=== PATIENT | male | born 1995 | race Caucasian/White ===

== ENCOUNTER 2016-10-28 21:59 | Emergency (ER) | payer BC ==
[~2016-10-28] VITALS: Ht 177.8 cm; Wt 90.7 kg
[2016-10-28 22:00] VITALS: BP 148/98
[2016-10-28 22:05] VITALS: BP 149/113
[2016-10-28 22:51] LABS: MEAN CORPUSCULAR HEMOGLOBIN 32.7 PG (27.0-31.0); MEAN CORPUSCULAR HGB CONC 34.7 G/DL (32.0-36.0); MEAN CORPUSCULAR VOLUME 94 FL (80-99); MEAN PLATELET VOLUME 7.5 FL (6.5-10.1); PLATELET COUNT 231 K/UL (150-450); RED CELL DISTRIBUTION WIDTH 12.6 % (11.6-14.8); WHITE BLOOD COUNT 18.7 K/UL (4.8-10.8)
[2016-10-28 23:08] LABS: ACETAMINOPHEN < 10 ug/mL (10-30); ALANINE AMINOTRANSFERASE 76 U/L (3-41); ALBUMIN/GLOBULIN RATIO 1.6 (1.0-2.7); ALCOHOL < 10 mg/dL; ANION GAP 14 (5-15); ASPARTATE AMINO TRANSFERASE 43 U/L (5-40); CALCIUM 9.1 mg/dL (8.6-10.2); CARBON DIOXIDE 25 mEQ/L (20-30); CHLORIDE 99 mEQ/L (98-107); CREATININE 1.2 mg/dL (0.7-1.2); GLOMERULAR FILTRATION RATE > 60 mL/min (>60); HEMOLYSIS 11; POTASSIUM 3.8 mEQ/L (3.4-4.9); SODIUM 138 mEQ/L (135-145); TOTAL PROTEIN 7.3 g/dL (6.6-8.7)
[2016-10-28 23:10] LABS: LYMPHOCYTES % (MANUAL) 7 % (20-45); NEUTROPHILS % (MANUAL) 89 % (45-75); PLATELET MORPHOLOGY NORMAL; TOTAL CELLS COUNTED 100
[2016-10-28 23:11] LABS: BAND NEUTROPHILS % (MANUAL) 0 % (0-8); BASOPHILS % (MANUAL) 0 % (0-2); EOSINOPHILS % (MANUAL) 0 % (0-3); PLATELET ESTIMATE ADEQUATE
--- NOTE | 2016-10-29 00:29 | Emergency Room Report ---
History of Present Illness General Chief Complaint: Overdose Source: Patient Present Illness HPI Patient present by paramedics for reports of an intentional overdose Patient's mom also presents to the found the patient She had come into the room to find the patient unresponsive Paramedics summoned and the patient was provided with Narcan Which resulted in acute change in his mental status And the patient became awake and alert Patient takes multiple medications for chronic pain syndrome He reports that he might have taken an extra pill However he denies any homicidal or suicidal thoughts, and reports that this was simply for medical reasons Denies any alcohol or other illicit drugs Allergies: Coded Allergies: No Known Allergies (Unverified , 10/28/16) Patient History Past Medical History: see triage record Pertinent Family History: none Reviewed Nursing Documentation: PMH: Agreed, PSxH: Agreed Nursing Documentation-PMH Past Medical History: No Stated History Review of Systems All Other Systems: negative except mentioned in HPI Physical Exam Vital Signs Date Time Temp Pulse Resp B/P (MAP) Pulse Ox O2 Delivery O2 Flow Rate FiO2 10/28/16 21:54 62 20 148/98 100 Room Air Sp02 EP Interpretation: reviewed, normal General Appearance: well appearing, no apparent distress Head: normocephalic, atraumatic Eyes: bilateral eye PERRL, bilateral eye EOMI ENT: hearing grossly normal, normal pharynx, TMs + canals normal, uvula midline Neck: full range of motion, supple, no meningismus, no bony tend Respiratory: lungs clear, normal breath sounds, no rhonchi, no respiratory distress, no retraction, no accessory muscle use Cardiovascular #1: normal peripheral pulses, regular rate, rhythm, no edema, no gallop, no JVD, no murmur Gastrointestinal: normal bowel sounds, non tender, soft, no mass, no organomegaly, non-distended, no guarding, no hernia, no pulsatile mass, no rebound Genitourinary: no CVA tenderness Musculoskeletal: normal inspection, back normal Neurologic: oriented x3, responsive, coffee taster III-XII nml as tested, motor strength/ tone normal, sensory intact Psychiatric: mood/affect normal Skin: normal color, no rash, warm/dry, palpation normal Lymphatic: normal inspection, no adenopathy Medical Decision Making Diagnostic Impression: Primary Impression: Drug overdose ER Course Patient presents with an unintentional drug overdose Responded appropriately to Narcan in the field Patient was observed for prolonged period of time continued to do well arousable and awake Patient was found to have multiple drug types positive in the urine Given the question of possible [place] ingestion repeat Tylenol level was obtained which was negative And the patient stable for followup outpatient He is going home with his mom and she also feels comfortable at this time going home the patient He continues not to be any reports of any homicidal or suicidal thought, the mom also confirms this with the patient Labs Test 10/28/16 22:30 10/29/16 00:17 10/29/16 02:00 White Blood Count 18.7 K/UL (4.8-10.8) Red Blood Count 4.40 M/UL (4.70-6.10) Hemoglobin 14.4 G/DL (14.2-18.0) Hematocrit 41.4 % (42.0-52.0) Mean Corpuscular Volume 94 FL (80-99) Mean Corpuscular Hemoglobin 32.7 PG (27.0-31.0) Mean Corpuscular Hemoglobin Concent 34.7 G/DL (32.0-36.0) Red Cell Distribution Width 12.6 % (11.6-14.8) Platelet Count 231 K/UL (150-450) Mean Platelet Volume 7.5 FL (6.5-10.1) Neutrophils (%) (Auto) % (45.0-75.0) Lymphocytes (%) (Auto) % (20.0-45.0) Monocytes (%) (Auto) % (1.0-10.0) Eosinophils (%) (Auto) % (0.0-3.0) Basophils (%) (Auto) % (0.0-2.0) Differential Total Cells Counted 100 Neutrophils % (Manual) 89 % (45-75) Lymphocytes % (Manual) 7 % (20-45) Monocytes % (Manual) 4 % (1-10) Eosinophils % (Manual) 0 % (0-3) Basophils % (Manual) 0 % (0-2) Band Neutrophils 0 % (0-8) Platelet Estimate Adequate Platelet Morphology Normal Red Blood Cell Morphology Normal Sodium Level 138 mEQ/L (135-145) Potassium Level 3.8 mEQ/L (3.4-4.9) Chloride Level 99 mEQ/L (98-107) Carbon Dioxide Level 25 mEQ/L (20-30) Anion Gap 14 (5-15) Blood Urea Nitrogen 9 mg/dL (7-23) Creatinine 1.2 mg/dL (0.7-1.2) Estimat Glomerular Filtration Rate > 60 mL/min (>60) Glucose Level 220 mg/dL (74-106) Calcium Level 9.1 mg/dL (8.6-10.2) Total Bilirubin 0.3 mg/dL (0.0-1.2) Aspartate Amino Transf (AST/SGOT) 43 U/L (5-40) Alanine Aminotransferase (ALT/SGPT) 76 U/L (3-41) Alkaline Phosphatase 58 U/L (40-129) Total Protein 7.3 g/dL (6.6-8.7) Albumin 4.5 g/dL (3.5-5.2) Globulin 2.8 g/dL Albumin/Globulin Ratio 1.6 (1.0-2.7) Salicylates Level < 1 mg/dL (10-30) Acetaminophen Level < 10 ug/mL (10-30) < 10 ug/mL (10-30) Serum Alcohol < 10 mg/dL Urine Opiates Screen Positive (NEGATIVE) Urine Barbiturates Screen Negative (NEGATIVE) Phencyclidine (PCP) Screen Negative (NEGATIVE) Urine Amphetamines Screen Positive (NEGATIVE) Urine Benzodiazepines Screen Positive (NEGATIVE) Urine Cocaine Screen Negative (NEGATIVE) Urine Marijuana (THC) Screen Positive (NEGATIVE) Rhythm Strip Diag. Results EP Interpretation: yes Rate: 66 Rhythm: NSR, no PVC's, no ectopy Last Vital Signs Date Time Temp Pulse Resp B/P (MAP) Pulse Ox O2 Delivery O2 Flow Rate FiO2 10/28/16 23:28 114 20 Room Air 10/28/16 22:05 149/113 96 Status: improved Disposition: HOME, SELF-CARE Condition: Improved Additional Instructions: Patient is provided with the discharge instructions notified to follow up with primary doctor in the next 2-3 days otherwise return to the er with any worsening symptoms. Please note that this report is being documented using [employer] technology. This can lead to erroneous entry secondary to incorrect interpretation by the dictating instrument. BLACK SAAB D.O. Oct 29, 2016 00:29
[2016-10-29 01:30] VITALS: BP 115/65
[2016-10-29 03:35] VITALS: BP 102/53
[2016-10-29 03:58] VITALS: BP 102/53
== END 2016-10-29 06:10 | disposition home or self-care (01) ==
LOC: EDBD 21:59 → EMR 22:30
DX: T50.901A Poisoning by unspecified drugs, medicaments and biological substances, accidental (unintentional), initial encounter (principal)
CPT/HCPCS: 36415; 80053; 80300; 85007; 85025; 96361; 96374; 99284; G0480; J2405; 80329

== ENCOUNTER 2016-12-29 12:10 | Inpatient (IN) | payer BC ==
[~2016-12-29] VITALS: Ht 172.7 cm; Wt 101.6 kg
[2016-12-29 12:20] VITALS: BP 111/67
[2016-12-29] MEDS ORDERED: VALTREX500 MG ORAL (12:20)
[2016-12-29] MEDS ORDERED: SUBOXONE 4 MG-1 EACH SL (12:20)
[2016-12-29] MEDS ORDERED: GABAPENTIN400 MG ORAL (12:20)
[2016-12-29] MEDS ORDERED: ATIVAN1 MG ORAL (12:21)
[2016-12-29 12:52] LABS: BASOPHILS % (AUTO) 0.9 % (0.0-2.0); EOSINOPHILS % (AUTO) 1.2 % (0.0-3.0); LYMPHOCYTES % (AUTO) 23.9 % (20.0-45.0); MEAN CORPUSCULAR HEMOGLOBIN 31.4 PG (27.0-31.0); MEAN CORPUSCULAR HGB CONC 33.4 G/DL (32.0-36.0); MEAN CORPUSCULAR VOLUME 94 FL (80-99); MEAN PLATELET VOLUME 7.6 FL (6.5-10.1); NEUTROPHILS % (AUTO) 68.1 % (45.0-75.0); PLATELET COUNT 312 K/UL (150-450); RED BLOOD COUNT 5.01 M/UL (4.70-6.10); RED CELL DISTRIBUTION WIDTH 11.8 % (11.6-14.8); WHITE BLOOD COUNT 8.9 K/UL (4.8-10.8)
[2016-12-29 13:12] LABS: INR 1.1 (0.9-1.1); PROTHROMBIN TIME 11.3 SEC (9.30-11.50)
[2016-12-29 13:16] LABS: ALANINE AMINOTRANSFERASE 35 U/L (12-78); ALBUMIN/GLOBULIN RATIO 1.1 (1.0-2.7); ANION GAP 4 mmol/L (5-15); ASPARTATE AMINO TRANSFERASE 21 U/L (15-37); CALCIUM 9.6 MG/DL (8.5-10.1); CARBON DIOXIDE 33 MMOL/L (21-32); CHLORIDE 103 MMOL/L (98-107); GLOMERULAR FILTRATION RATE > 60 mL/min (>60); LIPASE 232 U/L (73-393); POTASSIUM 3.9 MMOL/L (3.5-5.1); SODIUM 140 MMOL/L (136-145)
[2016-12-29 13:41] LABS: APPEARANCE,URINE CLEAR; KETONES,URINE NEGATIVE (NEGATIVE); LEUKOCYTE ESTERASE ,URINE NEGATIVE (NEGATIVE); NITRITE,URINE NEGATIVE (NEGATIVE); PH,URINE 8 (4.5-8.0); PROTEIN,URINE NEGATIVE (NEGATIVE); UROBILINOGEN,URINE NORMAL MG/DL (0.0-1.0)
--- NOTE | 2016-12-29 13:46 | Emergency Room Report ---
History of Present Illness General Chief Complaint: General Complaint Source: Patient (ANGELY HEARD) Present Illness HPI The patient is a 21-year-old male presenting for hydradenitis suppurativa. He states that he has had this for the past 5 years and has been treated with multiple courses of antibiotics without any improvement. This is localized to the groin. He does admit to a 5/10 dull ache to this region and is worse with touch. Pain does not radiate. He denies fevers, chills, discharge from the wounds, shortness of breath, chest pain, abdominal pain, dysuria (ANGELY HEARD) Allergies: Coded Allergies: No Known Allergies (Unverified , 10/28/16) Patient History Past Medical History: see triage record Pertinent Family History: none Reviewed Nursing Documentation: PMH: Agreed, PSxH: Agreed (ANGELY HEARD) Review of Systems All Other Systems: negative except mentioned in HPI (ANGELY HEARD) Physical Exam Vital Signs Date Time Temp Pulse Resp B/P (MAP) Pulse Ox O2 Delivery O2 Flow Rate FiO2 12/29/16 12:13 98.1 66 18 111/67 98 Room Air Sp02 EP Interpretation: reviewed, normal General Appearance: no apparent distress, alert, GCS 15, non-toxic Head: normocephalic, atraumatic Eyes: bilateral eye normal inspection, bilateral eye PERRL ENT: hearing grossly normal, normal pharynx, no angioedema, normal voice Neck: full range of motion, supple/symm/no masses Respiratory: chest non-tender, lungs clear, normal breath sounds, speaking full sentences Cardiovascular #1: regular rate, rhythm, no edema Gastrointestinal: normal bowel sounds, non tender, soft, non-distended, no guarding, no rebound Genitourinary: normal inspection, no CVA tenderness Musculoskeletal: back normal, gait/station normal, normal range of motion, non- tender Neurologic: alert, oriented x3, responsive, motor strength/tone normal, sensory intact, speech normal Psychiatric: judgement/insight normal, memory normal, mood/affect normal, no suicidal/homicidal ideation Skin: rash - bilat inguinal region has multiple nodules with slight erythema and TTP. Lymphatic: no adenopathy (ANGELY HEARD) Medical Decision Making [place] Attestation Dr. Hogue is my supervising physician. Patient management was discussed with my supervising physician (ANGELY HEARD) Medicare Attestation The history of Williams Enriquez has been reviewed and management options for him have been examined and discussed by Debby Hogue. I have personally examined and interviewed the patient. (DEBBY HOGUE D.O.) Diagnostic Impression: Primary Impression: Hidradenitis suppurativa ER Course The patient is a 21-year-old male presenting for hydradenitis suppurativa. Differential diagnoses considered but not limited to: hydradenitis suppurativa, abscess, cellulitis, PE: Afebrile. NAD RRR Lungs CTA bilat Skin: bilat inguinal region has multiple nodules with slight erythema and TTP. No DC. Blood work is unremarkable. No leukocytosis The patient will be admitted to this hospital and stable condition. Dr. Hogue has spoken with admitting physician Laboratory Tests Test 12/29/16 12:41 12/29/16 13:26 White Blood Count 8.9 K/UL (4.8-10.8) Red Blood Count 5.01 M/UL (4.70-6.10) Hemoglobin 15.7 G/DL (14.2-18.0) Hematocrit 47.0 % (42.0-52.0) Mean Corpuscular Volume 94 FL (80-99) Mean Corpuscular Hemoglobin 31.4 PG (27.0-31.0) H Mean Corpuscular Hemoglobin Concent 33.4 G/DL (32.0-36.0) Red Cell Distribution Width 11.8 % (11.6-14.8) Platelet Count 312 K/UL (150-450) Mean Platelet Volume 7.6 FL (6.5-10.1) Neutrophils (%) (Auto) 68.1 % (45.0-75.0) Lymphocytes (%) (Auto) 23.9 % (20.0-45.0) Monocytes (%) (Auto) 6.0 % (1.0-10.0) Eosinophils (%) (Auto) 1.2 % (0.0-3.0) Basophils (%) (Auto) 0.9 % (0.0-2.0) Prothrombin Time 11.3 SEC (9.30-11.50) Prothrombin Time INR 1.1 (0.9-1.1) PTT 31 SEC (23-33) Sodium Level 140 MMOL/L (136-145) Potassium Level 3.9 MMOL/L (3.5-5.1) Chloride Level 103 MMOL/L (98-107) Carbon Dioxide Level 33 MMOL/L (21-32) H Anion Gap 4 mmol/L (5-15) L Blood Urea Nitrogen 11 mg/dL (7-18) Creatinine 1.0 MG/DL (0.55-1.30) Estimate Glomerular Filtration Rate > 60 mL/min (>60) Glucose Level 79 MG/DL (74-106) Calcium Level 9.6 MG/DL (8.5-10.1) Total Bilirubin 0.4 MG/DL (0.2-1.0) Aspartate Amino Transferase (AST) 21 U/L (15-37) Alanine Aminotransferase (ALT) 35 U/L (12-78) Alkaline Phosphatase 62 U/L (46-116) Total Protein 8.0 G/DL (6.4-8.2) Albumin 4.1 G/DL (3.4-5.0) Globulin 3.9 g/dL Albumin/Globulin Ratio 1.1 (1.0-2.7) Lipase 232 U/L (73-393) Urine Color Pale yellow Urine Appearance Clear Urine pH 8 (4.5-8.0) Urine Specific [place] 1.010 (1.005-1.035) Urine Protein Negative (NEGATIVE) Urine Glucose (UA) Negative (NEGATIVE) Urine Ketones Negative (NEGATIVE) Urine Occult Blood Negative (NEGATIVE) Urine Nitrite Negative (NEGATIVE) Urine Bilirubin Negative (NEGATIVE) Urine Urobilinogen Normal MG/DL (0.0-1.0) Urine Leukocyte Esterase Negative (NEGATIVE) Lab Results Impression Blood work is unremarkable. No leukocytosis (ANGELY HEARD) Last Vital Signs Date Time Temp Pulse Resp B/P (MAP) Pulse Ox O2 Delivery O2 Flow Rate FiO2 12/29/16 12:20 98.1 68 18 111/67 99 Room Air Status: improved (ANGELY HEARD) Disposition: ADMITTED INPATIENT Condition: Stable Referrals: NON PHYSICIAN (PCP) ANGELY HEARD Dec 29, 2016 13:46 DEBBY HOGUE D.O. Dec 29, 2016 14:50
[2016-12-29] MEDS ORDERED: LORazepam 1mg tab ORAL ONE (15:00)
[2016-12-29 16:00] VITALS: BP 109/55
[2016-12-29] MEDS ORDERED: Mylanta II UD 30ml ORAL PRN (16:30)
[2016-12-29] MEDS ORDERED: Norco 10mg/325mg tab ORAL PRN (16:30)
[2016-12-29] MEDS ORDERED: Miralax 17gm pkt ORAL PRN (16:30)
[2016-12-29] MEDS ORDERED: Zolpidem 5mg tab ORAL PRN (16:30)
[2016-12-29] MEDS ORDERED: Norco 5mg/325mg tab ORAL PRN (16:30)
--- NOTE | 2016-12-29 18:48 | History and Physical ---
History of Present Illness General Date patient seen: Dec 29, 2016 Time patient seen: 18:48 Reason for Hospitalization: pain/swelling/redness of b/l groin lesions Present Illness HPI 21y/o male with pmh of hidradenitis suppurativa, tobacco abuse, alcohol abuse, drug abuse, chronic pain and addiction who presents with increased pain/swelling /redness from b/l groin lesions. Pt states that he has had this for the past 5 years and has been treated with multiple courses of antibiotics without any improvement. This is localized to the groin described as a 5/10 dull ache to this region and is worse with touch. Pain does not radiate. Notes swelling and redness b/l. He denies fevers, chills, discharge from the wounds, shortness of breath, chest pain, abdominal pain, dysuria. Pt states able to ambulate several blocks and at least a flight of stairs w/o chest pain or SOB. H/o alcohol abuse , now in remission. H/o chronic pain and opioid dependence, now on suboxone. Smokes marijuana daily. Also smokes 1ppd cig x 5 years. Allergies: Coded Allergies: No Known Allergies (Unverified , 10/28/16) Medication History Scheduled Gabapentin* (Gabapentin*), 1,600 MG ORAL QID, (Reported) Lorazepam* (Ativan*), 1 MG ORAL BID, (Reported) Valacyclovir Hcl* (Valtrex*), 500 MG ORAL THREE TIMES A DAY, (Reported) Miscellaneous Medications Buprenorphine Hcl/Naloxone Hcl (Suboxone 4 Mg-1 Mg Sl Film), 1 EACH SL, ( Reported) Patient History History Provided By: Patient, PMD Healthcare decision maker Resuscitation status Full Code Advanced Directive on File No Family History Family History: Patient reports no known family medical history. Social History Social History: (1) Chronic pain (2) Opioid dependence (3) Tobacco abuse (4) H/O alcohol abuse (5) Hidradenitis suppurativa Review of Systems ROS Narrative CONSTITUTIONAL: No weight loss, fever, chills, weakness or fatigue. HEENT: Eyes: No visual loss, blurred vision, double vision or yellow sclerae. Ears, Nose, Throat: No hearing loss, sneezing, congestion, runny nose or sore throat. SKIN: No rash or itching. CARDIOVASCULAR: No chest pain, chest pressure or chest discomfort. No palpitations or edema. RESPIRATORY: No shortness of breath, cough or sputum. GASTROINTESTINAL: No anorexia, nausea, vomiting or diarrhea. No abdominal pain or blood. NEUROLOGICAL: No headache, dizziness, syncope, paralysis, ataxia, numbness or tingling in the extremities. No change in bowel or bladder control. MUSCULOSKELETAL: No muscle, back pain, joint pain or stiffness. HEMATOLOGIC: No anemia, bleeding or bruising. LYMPHATICS: No enlarged nodes. No history of splenectomy. PSYCHIATRIC: No history of depression or anxiety. ENDOCRINOLOGIC: No reports of sweating, cold or heat intolerance. No polyuria or polydipsia. ALLERGIES: No history of asthma, hives, eczema or rhinitis. Physical Exam Last 24 Hour Vital Signs Date Time Temp Pulse Resp B/P (MAP) Pulse Ox O2 Delivery O2 Flow Rate FiO2 12/29/16 16:00 98.5 51 18 109/55 99 Room Air 12/29/16 13:40 98.1 68 18 111/67 99 Room Air 12/29/16 12:20 98.1 68 18 111/67 99 Room Air 12/29/16 12:13 98.1 66 18 111/67 98 Room Air Intake and Output 12/29/16 12/30/16 19:00 07:00 Intake Total 410 ml Balance 410 ml Intake Oral 410 ml Laboratory Tests Test 12/29/16 12:41 12/29/16 13:26 White Blood Count 8.9 K/UL (4.8-10.8) Red Blood Count 5.01 M/UL (4.70-6.10) Hemoglobin 15.7 G/DL (14.2-18.0) Hematocrit 47.0 % (42.0-52.0) Mean Corpuscular Volume 94 FL (80-99) Mean Corpuscular Hemoglobin 31.4 PG (27.0-31.0) H Mean Corpuscular Hemoglobin Concent 33.4 G/DL (32.0-36.0) Red Cell Distribution Width 11.8 % (11.6-14.8) Platelet Count 312 K/UL (150-450) Mean Platelet Volume 7.6 FL (6.5-10.1) Neutrophils (%) (Auto) 68.1 % (45.0-75.0) Lymphocytes (%) (Auto) 23.9 % (20.0-45.0) Monocytes (%) (Auto) 6.0 % (1.0-10.0) Eosinophils (%) (Auto) 1.2 % (0.0-3.0) Basophils (%) (Auto) 0.9 % (0.0-2.0) Prothrombin Time 11.3 SEC (9.30-11.50) Prothromb Time International Ratio 1.1 (0.9-1.1) Activated Partial Thromboplast Time 31 SEC (23-33) Sodium Level 140 MMOL/L (136-145) Potassium Level 3.9 MMOL/L (3.5-5.1) Chloride Level 103 MMOL/L (98-107) Carbon Dioxide Level 33 MMOL/L (21-32) H Anion Gap 4 mmol/L (5-15) L Blood Urea Nitrogen 11 mg/dL (7-18) Creatinine 1.0 MG/DL (0.55-1.30) Estimat Glomerular Filtration Rate > 60 mL/min (>60) Glucose Level 79 MG/DL (74-106) Calcium Level 9.6 MG/DL (8.5-10.1) Total Bilirubin 0.4 MG/DL (0.2-1.0) Aspartate Amino Transf (AST/SGOT) 21 U/L (15-37) Alanine Aminotransferase (ALT/SGPT) 35 U/L (12-78) Alkaline Phosphatase 62 U/L (46-116) Total Protein 8.0 G/DL (6.4-8.2) Albumin 4.1 G/DL (3.4-5.0) Globulin 3.9 g/dL Albumin/Globulin Ratio 1.1 (1.0-2.7) Lipase 232 U/L (73-393) Urine Color Pale yellow Urine Appearance Clear Urine pH 8 (4.5-8.0) Urine Specific [place] 1.010 (1.005-1.035) Urine Protein Negative (NEGATIVE) Urine Glucose (UA) Negative (NEGATIVE) Urine Ketones Negative (NEGATIVE) Urine Occult Blood Negative (NEGATIVE) Urine Nitrite Negative (NEGATIVE) Urine Bilirubin Negative (NEGATIVE) Urine Urobilinogen Normal MG/DL (0.0-1.0) Urine Leukocyte Esterase Negative (NEGATIVE) Height (Feet): 5 Height (Inches): 10.00 Weight (Pounds): 227 Medications Current Medications Medications (Trade) Dose Ordered Sig/Kristopher Route PRN Reason Start Time Stop Time Status Last Admin Dose Admin Acetaminophen (Tylenol) 650 mg Q4H PRN ORAL Mild Pain (Pain Scale 1-3) 12/29/16 16:30 01/28/17 16:29 Acetaminophen/ Hydrocodone Bitart ([place] 10/325) 1 ea Q4H PRN ORAL For severe Pain 12/29/16 16:30 01/05/17 16:29 Acetaminophen/ Hydrocodone Bitart ([place] 5/325) 1 tab Q4H PRN ORAL Moderate Pain (Pain Scale 4-6) 12/29/16 16:30 01/05/17 16:29 Al Hydroxide/Mg Hydroxide (Mylanta II) 30 ml Q6H PRN ORAL dyspepsia 12/29/16 16:30 01/28/17 16:29 Cefazolin Sodium 1 gm/Dextrose 55 ml @ 110 mls/hr Q8HR@0200,1000,1800 IVPB 12/29/16 18:00 01/05/17 17:59 Dextrose (Dextrose 50%) STAT PRN IV Hypoglycemia 12/29/16 16:30 01/28/17 16:29 Dextrose/Sodium Chloride 1,000 ml @ 75 mls/hr [id number] IV 12/29/16 17:30 01/28/17 17:29 Diphenhydramine HCl (Benadryl) 25 mg Q6H PRN ORAL Itching/Pruritis 12/29/16 16:30 01/28/17 16:29 Docusate Sodium (Colace) 100 mg EVERY 12 HOURS ORAL 12/29/16 21:00 01/28/17 20:59 Gabapentin (Neurontin) 300 mg QID ORAL 12/29/16 18:00 01/28/17 17:59 Lorazepam (Ativan) 1 mg BIDPRN PRN ORAL anxiety/agitation 12/29/16 16:45 01/05/17 16:44 Nicotine (Nicoderm) 1 patch Q24H TDERMAL 12/29/16 18:45 01/28/17 18:44 UNV Ondansetron HCl (Zofran) 4 mg Q6H PRN IVP Nausea & Vomiting 12/29/16 16:30 01/28/17 16:29 Polyethylene Glycol (Miralax) 17 gm HSPRN PRN ORAL Constipation 12/29/16 16:30 01/28/17 16:29 Zolpidem Tartrate (Ambien) 5 mg HSPRN PRN ORAL Insomnia 12/29/16 16:30 01/05/17 16:29 Assessment/Plan Problem List: (1) Abscess ICD Codes: L02.91 - Cutaneous abscess, unspecified SNOMED: 694000068 (2) Hidradenitis suppurativa ICD Codes: L73.2 - Hidradenitis suppurativa SNOMED: 02283509 (3) Chronic pain ICD Codes: G89.29 - Other chronic pain SNOMED: 70608697 (4) Opioid dependence ICD Codes: F11.20 - Opioid dependence, uncomplicated SNOMED: 00363141 (5) Tobacco abuse ICD Codes: Z72.0 - Tobacco use SNOMED: 40872300, 031867784 (6) H/O alcohol abuse ICD Codes: Z87.898 - Personal history of other specified conditions SNOMED: 828995928 Status: stable Assessment/Plan Admit inpt Plastic surgery consulted Check blood cultures x 2 Empiric Ancef IV Wound care per surgery Pain mgmt consulted given chronic pain and h/o addiction on suboxone Counseled on tobacco cessation If patient is required to have surgery, based on the patient's medical history, and other available ancillary data, the patient is a LOW risk for an INTERMEDIATE risk procedure. Per the most recent ACC/AHA guidelines, the patient does not need any further cardiopulmonary testing prior to the procedure and there do not appear to be any clear medical contraindications to proceeding with the proposed procedure. METs>4 D/w pt/family, RN, surgery regarding mgmt and Cinthia Steinberg M.D. Dec 29, 2016 18:48
[2016-12-29] MEDS: ceFAZolin 1gm in D5W 55ml IVPB SCH (19:29)
[2016-12-29] MEDS: D5 1/2NS 1,000 ML IV SCH (19:29)
[2016-12-29 20:00] VITALS: BP 132/92
[2016-12-29] MEDS: Docusate 100mg cap ORAL SCH (20:42)
[2016-12-29] MEDS ORDERED: ceFAZolin 1gm/50ml Premix 50 ML IV SCH (22:00)
[2016-12-29] MEDS: LORazepam 1mg tab ORAL PRN (22:54)
[2016-12-30] VITALS (10 sets, daily range): BP systolic 117–136; BP diastolic 58–91
[2016-12-30] MEDS: ceFAZolin 1gm in D5W 55ml IVPB SCH ×3 (02:09→18:09)
--- NOTE | 2016-12-30 08:13 | Consultation ---
History of Present Illness General Date patient seen: Dec 30, 2016 Chief Complaint: Present Illness Allergies: Coded Allergies: No Known Allergies (Unverified , 10/28/16) Medication History Scheduled Gabapentin* (Gabapentin*), 1,600 MG ORAL QID, (Reported) Lorazepam* (Ativan*), 1 MG ORAL BID, (Reported) Valacyclovir Hcl* (Valtrex*), 500 MG ORAL THREE TIMES A DAY, (Reported) Miscellaneous Medications Buprenorphine Hcl/Naloxone Hcl (Suboxone 4 Mg-1 Mg Sl Film), 1 EACH SL, ( Reported) Patient History Healthcare decision maker Resuscitation status Full Code Advanced Directive on File No Physical Exam Last 24 Hour Vital Signs Date Time Temp Pulse Resp B/P (MAP) Pulse Ox O2 Delivery O2 Flow Rate FiO2 12/30/16 04:00 97.7 69 18 127/68 99 Room Air 12/29/16 20:00 97.5 62 18 132/92 97 Room Air 12/29/16 16:00 98.5 51 18 109/55 99 Room Air 12/29/16 13:40 98.1 68 18 111/67 99 Room Air 12/29/16 12:20 98.1 68 18 111/67 99 Room Air 12/29/16 12:13 98.1 66 18 111/67 98 Room Air Laboratory Tests Test 12/29/16 12:41 12/29/16 13:26 White Blood Count 8.9 K/UL (4.8-10.8) Red Blood Count 5.01 M/UL (4.70-6.10) Hemoglobin 15.7 G/DL (14.2-18.0) Hematocrit 47.0 % (42.0-52.0) Mean Corpuscular Volume 94 FL (80-99) Mean Corpuscular Hemoglobin 31.4 PG (27.0-31.0) H Mean Corpuscular Hemoglobin Concent 33.4 G/DL (32.0-36.0) Red Cell Distribution Width 11.8 % (11.6-14.8) Platelet Count 312 K/UL (150-450) Mean Platelet Volume 7.6 FL (6.5-10.1) Neutrophils (%) (Auto) 68.1 % (45.0-75.0) Lymphocytes (%) (Auto) 23.9 % (20.0-45.0) Monocytes (%) (Auto) 6.0 % (1.0-10.0) Eosinophils (%) (Auto) 1.2 % (0.0-3.0) Basophils (%) (Auto) 0.9 % (0.0-2.0) Prothrombin Time 11.3 SEC (9.30-11.50) Prothromb Time International Ratio 1.1 (0.9-1.1) Activated Partial Thromboplast Time 31 SEC (23-33) Sodium Level 140 MMOL/L (136-145) Potassium Level 3.9 MMOL/L (3.5-5.1) Chloride Level 103 MMOL/L (98-107) Carbon Dioxide Level 33 MMOL/L (21-32) H Anion Gap 4 mmol/L (5-15) L Blood Urea Nitrogen 11 mg/dL (7-18) Creatinine 1.0 MG/DL (0.55-1.30) Estimat Glomerular Filtration Rate > 60 mL/min (>60) Glucose Level 79 MG/DL (74-106) Calcium Level 9.6 MG/DL (8.5-10.1) Total Bilirubin 0.4 MG/DL (0.2-1.0) Aspartate Amino Transf (AST/SGOT) 21 U/L (15-37) Alanine Aminotransferase (ALT/SGPT) 35 U/L (12-78) Alkaline Phosphatase 62 U/L (46-116) Total Protein 8.0 G/DL (6.4-8.2) Albumin 4.1 G/DL (3.4-5.0) Globulin 3.9 g/dL Albumin/Globulin Ratio 1.1 (1.0-2.7) Lipase 232 U/L (73-393) Urine Color Pale yellow Urine Appearance Clear Urine pH 8 (4.5-8.0) Urine Specific [place] 1.010 (1.005-1.035) Urine Protein Negative (NEGATIVE) Urine Glucose (UA) Negative (NEGATIVE) Urine Ketones Negative (NEGATIVE) Urine Occult Blood Negative (NEGATIVE) Urine Nitrite Negative (NEGATIVE) Urine Bilirubin Negative (NEGATIVE) Urine Urobilinogen Normal MG/DL (0.0-1.0) Urine Leukocyte Esterase Negative (NEGATIVE) Height (Feet): 5 Height (Inches): 8.00 Weight (Pounds): 224 Medications Current Medications Medications (Trade) Dose Ordered Sig/Kristopher Route PRN Reason Start Time Stop Time Status Last Admin Dose Admin Acetaminophen (Tylenol) 650 mg Q4H PRN ORAL Mild Pain (Pain Scale 1-3) 12/29/16 16:30 01/28/17 16:29 Al Hydroxide/Mg Hydroxide (Mylanta II) 30 ml Q6H PRN ORAL dyspepsia 12/29/16 16:30 01/28/17 16:29 Cefazolin Sodium 1 gm/Dextrose 55 ml @ 110 mls/hr Q8HR@0200,1000,1800 IVPB 12/29/16 18:00 01/05/17 17:59 12/30/16 02:09 Dextrose (Dextrose 50%) STAT PRN IV Hypoglycemia 12/29/16 16:30 01/28/17 16:29 Dextrose/Sodium Chloride 1,000 ml @ 75 mls/hr [id number] IV 12/29/16 17:30 01/28/17 17:29 12/29/16 19:29 Diphenhydramine HCl (Benadryl) 25 mg Q6H PRN ORAL Itching/Pruritis 12/29/16 16:30 01/28/17 16:29 Docusate Sodium (Colace) 100 mg EVERY 12 HOURS ORAL 12/29/16 21:00 01/28/17 20:59 12/29/16 20:42 Gabapentin (Neurontin) 300 mg QID ORAL 12/29/16 18:00 01/28/17 17:59 12/29/16 20:42 Lorazepam (Ativan) 1 mg BIDPRN PRN ORAL anxiety/agitation 12/29/16 16:45 01/05/17 16:44 12/29/16 22:54 Nicotine (Nicoderm) 1 patch Q24H TDERMAL 12/29/16 21:00 01/28/17 20:59 12/29/16 20:44 Ondansetron HCl (Zofran) 4 mg Q6H PRN IVP Nausea & Vomiting 12/29/16 16:30 01/28/17 16:29 Polyethylene Glycol (Miralax) 17 gm HSPRN PRN ORAL Constipation 12/29/16 16:30 01/28/17 16:29 Zolpidem Tartrate (Ambien) 5 mg HSPRN PRN ORAL Insomnia 12/29/16 16:30 01/05/17 16:29 Assessment/Plan Assessment/Plan (1) Intractable groin and thigh pain (2) Hidradenitis suppurativa seen dictated MAR DANIELLE Dec 30, 2016 08:13
[2016-12-30] MEDS: D5 1/2NS 1,000 ML IV SCH ×2 (08:41→20:10)
[2016-12-30] MEDS: Docusate 100mg cap ORAL SCH ×2 (09:00→21:17)
[2016-12-30] MEDS ORDERED: Rate Change PCA 1 Each MISC PRN (09:15)
[2016-12-30] MEDS ORDERED: Naloxone 0.4mg/ml Inj IV PRN (09:15)
[2016-12-30] MEDS ORDERED: PCA Education Pamphlet MISC ONE (10:00)
[2016-12-30] MEDS: Lyrica 75mg cap ORAL SCH ×3 (10:00→18:10)
[2016-12-30] MEDS ORDERED: D5NS 1000ml IV ONE (10:58)
[2016-12-30] MEDS ORDERED: Tubing IV Secondary IV ONE (10:58)
[2016-12-30] MEDS: Relistor 12mg/0.6ml Vial SUBQ SCH (11:00)
[2016-12-30] MEDS ORDERED: Lidocaine 1% 10mg/ml/EPI 0.01mg/ml 50ml INJ ONE (11:13)
[2016-12-30] MEDS ORDERED: NeoSporin Gu Irrig 1ml Amp IRRIG ONE (11:13)
[2016-12-30] MEDS ORDERED: Bacitracin 50000 Units Vial ONE (11:13)
--- NOTE | 2016-12-30 11:14 | Pre-Procedure Note/Attestation ---
Pre-Procedure Note/Attestation Complete Prior to Procedure Planned Procedure: bilateral Procedure Narrative: Bilateral thigh debridement and flap reconstruction Attestation I attest that I discussed the nature of the procedure; its benefits; risks and complications; and alternatives (and the risks and benefits of such alternatives ), prior to the procedure, with the patient (or the patient's legal help desk representative). I attest that, if there was a reasonable possibility of needing a blood transfusion, the patient (or the patient's legal help desk representative) was given the [facility] standardized written summary, pursuant to the [place] Blood Safety Act ([place] Health and Safety Code # 1645, as amended). I attest that I re-evaluated the patient just prior to the surgery and that there has been no change in the patient's H&P, except as documented below: ISABEL HURT Dec 30, 2016 11:14
[2016-12-30] MEDS ORDERED: Ketorolac 30mg Inj ONE (11:30)
[2016-12-30] MEDS ORDERED: LR 1000ml ONE (11:30)
[2016-12-30] MEDS ORDERED: NS Irrig 1000ml ONE (11:30)
[2016-12-30] MEDS ORDERED: fentaNYL 100 mcg/2 mL IV ONE (11:30)
[2016-12-30] MEDS ORDERED: Ketamine 500mg Inj ONE (11:30)
[2016-12-30] MEDS ORDERED: Morphine Sulfate 10mg/ml Inj ONE (11:30)
[2016-12-30] MEDS ORDERED: Glycopyrrolate 0.2mg/ml 1ml Vial ONE (11:30)
[2016-12-30] MEDS ORDERED: Succinylcholine 20mg/ml 10ml vial ONE (11:30)
[2016-12-30] MEDS ORDERED: Zemuron 50mg/5ml Inj IV ONE (11:30)
[2016-12-30] MEDS ORDERED: Neostigmine 1mg/ml 10ml Inj ONE (11:30)
[2016-12-30] MEDS ORDERED: Sterile Water Irrig 1000ml IRRIG ONE (11:30)
[2016-12-30] MEDS ORDERED: LR 1000ml 1,000 ML IVLG SCH (12:22)
--- NOTE | 2016-12-30 12:22 | Anethesia Preoperative Eval ---
Anesthesia Pre-op PMH/ROS General Date of Evaluation: Dec 30, 2016 Time of Evaluation: 10:05 Anesthesiologist: Benji ASA Score: ASA 2 Mallampati Score Class I : Soft palate, uvula, fauces, pillars visible Class II: Soft palate, uvula, fauces visible Class III: Soft palate, base of uvula visible Class IV: Only hard plate visible Mallampati Classification: Class II Surgeon: Sasha Diagnosis: Recurrent HS Surgical Procedure: Excision of bilateral groin hydradenitis Anesthesia History: PONV Social History: current smoker, alcohol use - h/o, drug use - IVDA Family History: no anesthesia problems Allergies: Coded Allergies: No Known Allergies (Unverified , 10/28/16) Medications: see eMAR Past Medical History Cardiovascular: Denies: HTN, CAD, [place], valve dz, arrhythmia, other Pulmonary: Denies: asthma, COPD, IAN, other Gastrointestinal/Genitourinary: Reports: GERD, Denies: CRI, ESRD, other Neurologic/Psychiatric: Reports: depression/anxiety, other - opioid dependence , Denies: dementia, CVA, TIA Endocrine: Denies: DM, hypothyroidism, steroids, other HEENT: Denies: cataract (L), cataract (R), glaucoma, [place] (L), [place] (R), other Hematology/Immune: Reports: anemia Musculoskeletal/Integumentary: Denies: OA, RA, DJD, DDD, edema, other Other: obesity PMH Narrative: as above PSxH Narrative: wrist ORIF Anesthesia Pre-op Phys. Exam Physician Exam Last Vital Signs Date Time Temp Pulse Resp B/P (MAP) Pulse Ox O2 Delivery O2 Flow Rate FiO2 12/30/16 08:00 98.2 61 18 124/71 100 Room Air Constitutional: NAD Neurologic: CN 2-12 intact Cardiovascular: RRR, no M/R/G Respiratory: CTA Gastrointestinal: S/NT/ND Airway Exam Mallampati Score: Class II MO: full Neck: flexible ROM: full Teeth: intact Dentures: no upper, no lower Anesthesia Pre-op A/P Labs Hematology Test 12/29/16 12:41 White Blood Count 8.9 K/UL (4.8-10.8) Red Blood Count 5.01 M/UL (4.70-6.10) Hemoglobin 15.7 G/DL (14.2-18.0) Hematocrit 47.0 % (42.0-52.0) Mean Corpuscular Volume 94 FL (80-99) Mean Corpuscular Hemoglobin 31.4 PG (27.0-31.0) H Mean Corpuscular Hemoglobin Concent 33.4 G/DL (32.0-36.0) Red Cell Distribution Width 11.8 % (11.6-14.8) Platelet Count 312 K/UL (150-450) Mean Platelet Volume 7.6 FL (6.5-10.1) Neutrophils (%) (Auto) 68.1 % (45.0-75.0) Lymphocytes (%) (Auto) 23.9 % (20.0-45.0) Monocytes (%) (Auto) 6.0 % (1.0-10.0) Eosinophils (%) (Auto) 1.2 % (0.0-3.0) Basophils (%) (Auto) 0.9 % (0.0-2.0) Coagulation Test 12/29/16 12:41 Prothrombin Time 11.3 SEC (9.30-11.50) Prothromb Time International Ratio 1.1 (0.9-1.1) Activated Partial Thromboplast Time 31 SEC (23-33) Chemistry Test 12/29/16 12:41 Sodium Level 140 MMOL/L (136-145) Potassium Level 3.9 MMOL/L (3.5-5.1) Chloride Level 103 MMOL/L (98-107) Carbon Dioxide Level 33 MMOL/L (21-32) H Anion Gap 4 mmol/L (5-15) L Blood Urea Nitrogen 11 mg/dL (7-18) Creatinine 1.0 MG/DL (0.55-1.30) Estimat Glomerular Filtration Rate > 60 mL/min (>60) Glucose Level 79 MG/DL (74-106) Calcium Level 9.6 MG/DL (8.5-10.1) Total Bilirubin 0.4 MG/DL (0.2-1.0) Aspartate Amino Transf (AST/SGOT) 21 U/L (15-37) Alanine Aminotransferase (ALT/SGPT) 35 U/L (12-78) Alkaline Phosphatase 62 U/L (46-116) Total Protein 8.0 G/DL (6.4-8.2) Albumin 4.1 G/DL (3.4-5.0) Globulin 3.9 g/dL Albumin/Globulin Ratio 1.1 (1.0-2.7) Lipase 232 U/L (73-393) Risk Assessment & Plan Assessment: ASA 2 Plan: GA with ETT PONV prevention Pre-Antibiotics Drug: Ancef 1gr Given Within 1 Hr of Incision: Yes Time Given: 11:52 DEBORAH DIALLO M.D. Dec 30, 2016 12:22
[2016-12-30] MEDS ORDERED: Metoclopramide 10mg/2ml Inj IVP PRN (12:30)
[2016-12-30] MEDS ORDERED: Meperidine 50mg/ml Inj(FOR RIGORS ONLY) IV PRN (12:30)
[2016-12-30] MEDS ORDERED: Ketorolac 30mg Inj IV PRN (12:30)
[2016-12-30] MEDS ORDERED: DiphenhydrAMINE 50mg/ml Inj IVP PRN (12:30)
--- NOTE | 2016-12-30 13:01 | Diagnostic Imaging Report ---
Indication: Dyspnea Comparison: None 2 views of the chest obtained. Findings: Cardiomediastinal silhouette and pulmonary vascularity are within normal limits for age. The diaphragmatic contour is smooth and costophrenic angles are sharp. No pleural effusions are identified. The bones are unremarkable. Impression: No acute disease
[2016-12-30] MEDS: Midazolam 2mg/2ml Inj IVP PRN ×2 (13:34→13:48)
[2016-12-30] MEDS: Hydromorphone 0.5mg/0.5ml inj IVP PRN ×2 (13:35→13:45)
[2016-12-30] MEDS: PCA HYDROmorphone 1mg/ml 30 ML IV PRN (13:52)
--- NOTE | 2016-12-30 14:37 | Immediate Post-Op Evaluation ---
Immediate Post-Op Evalulation Immediate Post-Op Evalulation Procedure: Excision of bilateral groin HS Date of Evaluation: Dec 30, 2016 Time of Evaluation: 13:22 IV Fluids: 1000 Blood Products: none Estimated Blood Loss: 50 Urinary Output: none Blood Pressure Systolic: 134 Blood Pressure Diastolic: 63 Pulse Rate: 74 Respiratory Rate: 22 O2 Sat by Pulse Oximetry: 99 Temperature (Fahrenheit): 97.6 Pain Score (1-10): 5 Nausea: No Vomiting: No Complications none Patient Status: reacts, patent, extubated, none Hydration Status: adequate DEBORAH DIALLO M.D. Dec 30, 2016 14:37
[2016-12-30] MEDS: oxyCONTIN 10mg tab ORAL SCH ×2 (15:05→22:18)
--- NOTE | 2016-12-30 15:34 | Cardiology Report ---
APPROVED REPORT EKG Measurement Heart [id number] CO 158P43 [id number] Sinus bradycardia Otherwise normal ECG
--- NOTE | 2016-12-30 15:34 | Operative Note - PDOC ---
Operative Note Operative Note Pre-op Diagnosis: Bilateral thigh infection Procedure: Debridement of bilateral thigh tissue and flap closure Surgeon: Sasha Art Supervisor: Esha Anesthesia: general Specimen: yes Complications: none Condition: stable Estimated Blood Loss: minimal Drains: ALICIA Implant(s) used?: No ISABEL HURT Dec 30, 2016 15:34
--- NOTE | 2016-12-30 19:00 | Consultation ---
DATE OF CONSULTATION: 12/30/2016 CONSULTING PHYSICIAN: Jef Baez M.D. HISTORY OF PRESENT ILLNESS: This is a 21-year-old male, admitted for bilateral thigh abscesses secondary to hidradenitis, was admitted by the medical team, started on IV antibiotics. The patient has had these symptoms for several weeks with flaring and has had significant discomfort and presented with these areas of abscesses. I am seeing the patient for evaluation for surgical management. PAST MEDICAL HISTORY: Significant for hidradenitis. PAST SURGICAL HISTORY: None. ALLERGIES: None. MEDICATIONS: Include chronic antibiotic use. PHYSICAL EXAMINATION: GENERAL: The patient is alert and oriented. HEART: Regular rate and rhythm. ABDOMEN: Soft, nontender, and nondistended. EXTREMITIES: Revealed multiple indurated regions in bilateral upper thighs with left side worse than the right. ASSESSMENT AND PLAN: This is a 21-year-old male with hidradenitis associated abscesses in his bilateral upper thighs, will require radical debridement with reconstruction. He understands that this might be a stage approach given the degree of infection that might be encountered in the operating room and he understands the risks and benefits of the treatment and agrees to proceed. Jef Baez M.D. DR: VINCENT JOB#: [id number] CC:
[2016-12-30] MEDS: PCA shift volume MISC SCH (19:14)
--- NOTE | 2016-12-30 19:15 | Operative Note - Dictated ---
DATE OF OPERATION: 12/30/2016 PREOPERATIVE DIAGNOSIS: Bilateral upper thigh infected tissue. POSTOPERATIVE DIAGNOSIS: Bilateral upper thigh infected tissue. PROCEDURES: 1. Radical excision of right upper thigh tissue. 2. Elevation of an anteromedial thigh flap for closure of right thigh tissue. 3. Radical excision of left thigh tissue. 4. Elevation of a left-sided anteromedial fasciocutaneous thigh flap for closure of left thigh wound. SURGEON: Jef Baez M.D. VARIETY LATHE OPERATOR: Oksana Balbuena M.D. ANESTHESIA: General. COMPLICATIONS: None. DRAINS: Included a left ALICIA drain. DISPOSITION: Stable to the recovery room. INDICATIONS FOR SURGERY: This is a 21-year-old male, admitted to the emergency room last night for upper thigh abscesses started on IV antibiotics and upon evaluation by me, I felt that he was an appropriate candidate for radical excision and flap reconstruction of his thigh tissues. He understood the risks and benefits of surgery and agreed to proceed. DETAILS OF THE OPERATION: The patient was brought to the operating room and laid in lithotomy position on the operating room table. His bilateral upper thighs were prepped and draped in a sterile and usual fashion. We proceeded first with delineating with a marking pen. The areas of disease were needed to be excised and once this was done, a #10 blade was used to make the elliptical type of incision around the right upper thigh tissue. Electrocautery was then used following the skin incision to radically excise the tissue all the way down to the level of the adductor fascia. The defect that remained measured 10 x 6 cm and it was clearly not amenable to primary closure. As such, an inferiorly based anteromedial thigh flap based off of perforators of the superficial femoral artery was elevated above the adductor fascia with proximal and distal incisions made to fully release the flap and allow for advancement. Once this was done, we then turned our attention to the contralateral left upper thigh tissue. A marking pen was used to delineate the elliptical type of incision on this side as well. A #10 blade was then used to make the skin incision. Electrocautery was used to radically excise the tissue all way down to the level of the adductor fascia. The defect that was opened on this side was larger and it was 13 x 8 cm. Again, this was not amenable to primary closure, as such an inferiorly based anteromedial thigh flap based off of perforators of the superficial femoral artery was elevated above the adductor fascia with proximal and distal incisions made to fully mobilize the flap to allow for advancement. Once both flaps were fully mobilized, the wound was copiously irrigated with pulse lavage. Hemostasis was achieved. We then proceeded to close the left-sided upper thigh wound by advancing the flap using #0 and 2-0 Vicryl sutures to secure the flap to the medial edge of the wound and a combination of running 3-0 Prolene and interrupted 2-0 Prolene were used to close the skin. In a similar fashion, the right-sided wound was also closed, however, this wound was larger and I felt that a ALICIA drain is appropriate to be used here. As such, a size 15 ALICIA was used and placed into the wound and the wound was similarly closed on the other side by advancing the flap using #0 and 2-0 Vicryl sutures and a running 3-0 Prolene with interrupted 2-0 Prolene was used to close the skin. Dermabond was applied to both incisions and a compressive dressing was applied. The patient tolerated the procedure well. There were no complications. Jef Baez M.D. DR: MAGNO JOB#: [id number] CC:
--- NOTE | 2016-12-30 20:13 | General Progress Note ---
Assessment/Plan Problem List: (1) Abscess ICD Codes: L02.91 - Cutaneous abscess, unspecified SNOMED: 044394332 (2) Hidradenitis suppurativa ICD Codes: L73.2 - Hidradenitis suppurativa SNOMED: 20925364 (3) Chronic pain ICD Codes: G89.29 - Other chronic pain SNOMED: 58661449 (4) Opioid dependence ICD Codes: F11.20 - Opioid dependence, uncomplicated SNOMED: 23301329 (5) Tobacco abuse ICD Codes: Z72.0 - Tobacco use SNOMED: 81516453, 796464062 (6) H/O alcohol abuse ICD Codes: Z87.898 - Personal history of other specified conditions SNOMED: 689649495 Status: stable Assessment/Plan s/p debridement of bilateral thigh tissue and flap closure on 12/30/16 Cont IV abx F/u blood cultures Wound care per surgery Appreciate plastic surg rec's Appreciate pain mgmt rec's Post operative recommendations include: - encourage mobilization/ambulation - encourage incentive spirometry to optimize pulmonary hygiene - DVT/GI prophylaxis as appropriate--SCDs, HSQ - pain control, supportive care, bowel regimen FULL CODE D/w pt, RN, CM, surgery, pain mgmt regarding mgmt and dispo Subjective Date patient seen: Dec 30, 2016 Time patient seen: 20:13 ROS Limited/Unobtainable: No Constitutional: Reports: no symptoms HEENT: Reports: no symptoms Cardiovascular: Reports: no symptoms Respiratory: Reports: no symptoms Gastrointestinal/Abdominal: Reports: no symptoms Genitourinary: Reports: no symptoms Neurologic/Psychiatric: Reports: no symptoms Endocrine: Reports: no symptoms Hematologic/Lymphatic: Reports: no symptoms Allergies: Coded Allergies: No Known Allergies (Unverified , 10/28/16) All Systems: reviewed and negative except above Subjective No acute o/n events s/p debridement of bilateral thigh tissue and flap closure today POD#0 Some uncontrolled pain earlier but now better on [employer] DES[employer]. Denies f/c, n/v, d/c, chest pain, SOB Objective Last 24 Hour Vital Signs Date Time Temp Pulse Resp B/P (MAP) Pulse Ox O2 Delivery O2 Flow Rate FiO2 12/30/16 16:00 97.3 59 18 117/73 97 Room Air 12/30/16 15:38 19 12/30/16 15:08 20 12/30/16 14:38 18 12/30/16 14:37 74 22 99 12/30/16 14:20 17 12/30/16 14:20 97.3 77 15 124/73 98 Nasal Cannula 3.0 12/30/16 14:05 14 12/30/16 14:00 73 17 136/74 99 Nasal Cannula 3.0 12/30/16 13:52 14 12/30/16 13:50 63 15 125/82 100 Nasal Cannula 3.0 12/30/16 13:40 61 18 130/91 100 Nasal Cannula 3.0 12/30/16 13:25 61 15 129/78 100 Nasal Cannula 3.0 12/30/16 13:18 97.5 61 16 117/58 100 Nasal Cannula 3.0 12/30/16 08:00 98.2 61 18 124/71 100 Room Air 12/30/16 04:00 97.7 69 18 127/68 99 Room Air Intake and Output 12/30/16 12/31/16 19:00 07:00 Intake Total 1025 ml Balance 1025 ml Intake Oral 700 ml IV Total 325 ml # Voids 2 Height (Feet): 5 Height (Inches): 8.00 Weight (Pounds): 224 Objective General: alert, cooperative, no distress, appears stated age Head: normocephalic, without obvious abnormality, atraumatic Eyes: conjunctivae/corneas clear. PERRL, EOM's intact Throat: lips, mucosa, and tongue normal. MMM Neck: supple, symmetrical, trachea midline, and no JVD Lungs: clear to auscultation bilaterally Heart: regular rate and rhythm, S1, S2 normal, no murmur, click, rub or gallop Abdomen: soft, non-tender, non-distended, bowel sounds normal; no masses or organomegaly Extremities: extremities normal, atraumatic, no cyanosis or edema Pulses: 2+ and symmetric Skin: skin color, texture, turgor normal; dressing c/d/i Neurologic: grossly normal, no focal deficits Cinthia Grey M.D. Dec 30, 2016 20:13
[2016-12-30] MEDS: LORazepam 1mg tab ORAL PRN (21:17)
[2016-12-30] MEDS: Heparin 5000 units/ml inj SUBQ SCH (21:18)
[2016-12-31] VITALS: BP 101/54
--- NOTE | 2016-12-31 01:15 | Consultation ---
DATE OF CONSULTATION: 12/30/2016 PAIN MANAGEMENT CONSULTATION CONSULTING PHYSICIAN: Amanda Herring M.D. PHYSICIAN RETANNED LEATHER ROLLER: Martha Friedman CHIEF COMPLAINT: Groin and thigh pain. HISTORY OF PRESENT ILLNESS: The patient is a 21-year-old male, who is being seen on the Medical/Surgical floor of [facility] for initial comprehensive pain management consultation. The patient has been admitted under the care of Dr. Ingram due to hidradenitis suppurativa, scheduled for bilateral thigh debridement with Dr. Baez and admitted today. The patient states that he is being treated with oxycodone 110 mg daily for many years and recently was started on Suboxone 8 mg films three times a day. Due to this, we were consulted so that the patient would have adequate pain control while here in the hospital for a faster recovery. PAST MEDICAL HISTORY: Morbid obesity. PAST SURGICAL HISTORY: Left wrist surgery. MEDICATIONS: Neurontin, Suboxone, Ativan, and Valtrex. ALLERGIES: No known drug allergies. SOCIAL HISTORY: Smoker. History of alcohol abuse. Denies IV drug abuse. REVIEW OF SYSTEMS: Denies rash, fever, chills, sweating, dizziness, drowsiness, blurred vision, sore throat, or change in weight. No shortness of breath or chest pain. No nausea, vomiting, diarrhea, or blood in the stool or urine. No bowel or bladder incontinence. No dysuria. He is complaining of bilateral groin and thigh pain. PHYSICAL EXAMINATION: GENERAL: Alert, awake, and oriented x3. VITAL SIGNS: Blood pressure 127/68, heart rate is 59, oxygen saturation 99% respiratory rate is 18, and temperature is 97.7 degrees Fahrenheit. Height is 5 feet 8 inches and weight is 274 pounds. HEENT: PERRLA. NECK: Range of motion is full in all directions. No tenderness to paracervical muscles. No adenopathy. LUNGS: Clear. HEART: Regular. ABDOMEN: Obese. BACK: Range of motion is decreased in flexion and extension with tenderness to paraspinal muscles. No tenderness to trapezius or rhomboid muscles. EXTREMITIES: Upper extremity range of motion is full in all directions. Motor is intact. No cyanosis. No clubbing. No edema. Sensory is intact. Reflexes are not obtainable. No adenopathy. Lower extremity range of motion is decreased due to the patient's condition. No cyanosis. No clubbing. No edema. Sensory is intact. Reflexes are not obtainable. No adenopathy. ASSESSMENT AND PLAN: This is a 21-year-old male with intractable groin and thigh pain, hidradenitis suppurativa, scheduled for debridement today with Dr. Baez. The patient will be started on patient-controlled analgesics, IV pain medication, and Dilaudid 0.5 mg with lock-out interval every eight minutes, and OxyContin 30 mg tablet every eight hours around the clock for oversedation. The patient was discussed with Dr. Herring and Dr. Herring concurred. We will follow the patient. Thank you very much for the courtesy of this consultation. Amanda Herring M.D. LACEY Friedman DR: HIMANSHU JOB#: [id number] CC:
[2016-12-31] MEDS: ceFAZolin 1gm in D5W 55ml IVPB SCH ×3 (01:55→17:43)
[2016-12-31 04:00] VITALS: BP 129/82
[2016-12-31] MEDS: D5 1/2NS 1,000 ML IV SCH (05:59)
[2016-12-31] MEDS: oxyCONTIN 10mg tab ORAL SCH ×3 (06:00→22:20)
[2016-12-31] MEDS: PCA HYDROmorphone 1mg/ml 30 ML IV PRN ×2 (06:43→18:01)
[2016-12-31] MEDS: PCA shift volume MISC SCH ×2 (07:28→19:20)
[2016-12-31 08:00] VITALS: BP 116/72
[2016-12-31] MEDS: Lyrica 75mg cap ORAL SCH ×3 (08:29→17:42)
[2016-12-31] MEDS: Docusate 100mg cap ORAL SCH ×2 (08:29→20:46)
[2016-12-31] MEDS: Heparin 5000 units/ml inj SUBQ SCH ×2 (08:39→20:46)
--- NOTE | 2016-12-31 08:57 | General Progress Note ---
Assessment/Plan Assessment/Plan (1) Intractable groin and thigh pain (2) Hidradenitis suppurativa (3) S/p Debridement of bilateral thighs Pt to be continued on Dilaudid BACK TENDER and Oxycontin. D/w Dr. Herring and he concurred. Subjective Date patient seen: Dec 31, 2016 Time patient seen: 07:45 - am Allergies: Coded Allergies: No Known Allergies (Unverified , 10/28/16) Subjective REVIEW OF SYSTEMS: Denies rash, fever, chills, sweating, dizziness, drowsiness, blurred vision, sore throat, or change in weight. No shortness of breath or chest pain. No nausea, vomiting, diarrhea, or blood in the stool or urine. No bowel or bladder incontinence. No dysuria. He is complaining of bilateral groin and thigh pain. SUBJECTIVE: Pain has been tolerated on the medication. He rates it a 6/10 at this time using 24mg of the BACK TENDER Dilaudid and taking the OxyContin. Objective Last 24 Hour Vital Signs Date Time Temp Pulse Resp B/P (MAP) Pulse Ox O2 Delivery O2 Flow Rate FiO2 12/31/16 06:43 18 12/31/16 04:16 18 12/31/16 04:00 98.1 78 18 129/82 93 Room Air 12/31/16 03:02 98.1 12/31/16 00:45 18 12/31/16 00:00 98.1 58 18 101/54 93 Room Air 12/30/16 20:50 21 12/30/16 20:00 97.7 55 17 132/68 98 Room Air 12/30/16 16:00 97.3 59 18 117/73 97 Room Air 12/30/16 15:38 19 12/30/16 15:08 20 12/30/16 14:38 18 12/30/16 14:37 74 22 99 12/30/16 14:20 17 12/30/16 14:20 97.3 77 15 124/73 98 Nasal Cannula 3.0 12/30/16 14:05 14 12/30/16 14:00 73 17 136/74 99 Nasal Cannula 3.0 12/30/16 13:52 14 12/30/16 13:50 63 15 125/82 100 Nasal Cannula 3.0 12/30/16 13:40 61 18 130/91 100 Nasal Cannula 3.0 12/30/16 13:25 61 15 129/78 100 Nasal Cannula 3.0 12/30/16 13:18 97.5 61 16 117/58 100 Nasal Cannula 3.0 Height (Feet): 5 Height (Inches): 8.00 Weight (Pounds): 224 Objective GENERAL: Alert, awake, and oriented x3. HEENT: PERRLA. NECK: Range of motion is full in all directions. No tenderness to paracervical muscles. No adenopathy. LUNGS: Clear. HEART: Regular. ABDOMEN: Obese. EXTREMITIES: Bandages noted on b/l thighs with tenderness to palpation. NEURO: No changes. MAR DANIELLE Dec 31, 2016 08:57
--- NOTE | 2016-12-31 10:05 | General Progress Note ---
Progress Note Progress Note Pt seen and examined. Doing well POD # 1. Dressings CDI. Plan on Dc in am. ISABEL Birch MD Dec 31, 2016 10:05
[2016-12-31] MEDS: Metoclopramide 10mg/2ml Inj IVP PRN ×2 (10:30→17:58)
[2016-12-31] MEDS: NS w/KCl 20mEq 1,000 ML IV SCH ×2 (11:40→17:43)
[2016-12-31 12:00] VITALS: BP 137/76
[2016-12-31] MEDS ORDERED: KEFLEX500 MG ORAL (14:22)
[2016-12-31 16:00] VITALS: BP 104/77
[2016-12-31 20:14] VITALS: BP 122/79
[2016-12-31] MEDS: LORazepam 1mg tab ORAL PRN (20:44)
--- NOTE | 2016-12-31 21:17 | General Progress Note ---
Assessment/Plan Problem List: (1) Abscess ICD Codes: L02.91 - Cutaneous abscess, unspecified SNOMED: 886698902 (2) Hidradenitis suppurativa ICD Codes: L73.2 - Hidradenitis suppurativa SNOMED: 57961449 (3) Chronic pain ICD Codes: G89.29 - Other chronic pain SNOMED: 18658851 (4) Opioid dependence ICD Codes: F11.20 - Opioid dependence, uncomplicated SNOMED: 35382715 (5) Tobacco abuse ICD Codes: Z72.0 - Tobacco use SNOMED: 80891237, 426050886 (6) H/O alcohol abuse ICD Codes: Z87.898 - Personal history of other specified conditions SNOMED: 041339642 Status: stable Assessment/Plan s/p debridement of bilateral thigh tissue and flap closure on 12/30/16 Cont IV abx F/u blood cultures Wound care per surgery Appreciate plastic surg rec's Appreciate pain mgmt rec's Post operative recommendations include: - encourage mobilization/ambulation - encourage incentive spirometry to optimize pulmonary hygiene - DVT/GI prophylaxis as appropriate--SCDs, HSQ - pain control, supportive care, bowel regimen Counseled on tobacco cessation, >10min spent on discussion DC planning home w/ home health for wound care likely tomorrow per surgery FULL CODE D/w pt, RN, CM, surgery, pain mgmt regarding mgmt and dispo Subjective Date patient seen: Dec 31, 2016 Time patient seen: 15:20 Constitutional: Reports: no symptoms HEENT: Reports: no symptoms Cardiovascular: Reports: no symptoms Respiratory: Reports: no symptoms Gastrointestinal/Abdominal: Reports: nausea, vomiting Genitourinary: Reports: no symptoms Neurologic/Psychiatric: Reports: no symptoms Endocrine: Reports: no symptoms Hematologic/Lymphatic: Reports: no symptoms Allergies: Coded Allergies: No Known Allergies (Unverified , 10/28/16) All Systems: reviewed and negative except above Subjective No acute o/n events s/p debridement of bilateral thigh tissue and flap closure POD#1 Had episodes of nausea and vomiting overnight and this AM Pain controlled. States nanusea improving. Denies f/c, d/c, chest pain, SOB Objective Last 24 Hour Vital Signs Date Time Temp Pulse Resp B/P (MAP) Pulse Ox O2 Delivery O2 Flow Rate FiO2 12/31/16 20:35 20 12/31/16 20:14 98.0 59 18 122/79 96 Room Air 12/31/16 16:00 20 12/31/16 16:00 98.0 67 17 104/77 98 Room Air 12/31/16 12:00 97.2 18 137/76 96 Room Air 12/31/16 11:45 20 12/31/16 09:30 18 12/31/16 08:00 98.2 74 17 116/72 97 Room Air 12/31/16 06:43 18 12/31/16 04:16 18 12/31/16 04:00 98.1 78 18 129/82 93 Room Air 12/31/16 03:02 98.1 12/31/16 00:45 18 12/31/16 00:00 98.1 58 18 101/54 93 Room Air Intake and Output 12/31/16 01/01/17 19:00 07:00 Intake Total 1405 ml 200 ml Output Total 1050 ml 5 ml Balance 355 ml 195 ml Intake Oral 850 ml IV Total 555 ml 200 ml Output Urine Total 1050 ml Drainage Total 5 ml Height (Feet): 5 Height (Inches): 8.00 Weight (Pounds): 224 Objective General: alert, cooperative, no distress, appears stated age Head: normocephalic, without obvious abnormality, atraumatic Eyes: conjunctivae/corneas clear. PERRL, EOM's intact Throat: lips, mucosa, and tongue normal. MMM Neck: supple, symmetrical, trachea midline, and no JVD Lungs: clear to auscultation bilaterally Heart: regular rate and rhythm, S1, S2 normal, no murmur, click, rub or gallop Abdomen: soft, non-tender, non-distended, bowel sounds normal; no masses or organomegaly Extremities: extremities normal, atraumatic, no cyanosis or edema Pulses: 2+ and symmetric Skin: skin color, texture, turgor normal; dressing c/d/i Neurologic: grossly normal, no focal deficits Cinthia Grey M.D. Dec 31, 2016 21:17
[2017-01-01] VITALS: BP 124/75
[2017-01-01] MEDS: ceFAZolin 1gm in D5W 55ml IVPB SCH ×3 (01:37→17:31)
[2017-01-01 04:00] VITALS: BP 137/83
[2017-01-01] MEDS: NS w/KCl 20mEq 1,000 ML IV SCH (04:38)
[2017-01-01] MEDS: oxyCONTIN 10mg tab ORAL SCH ×3 (06:11→21:34)
[2017-01-01] MEDS: Metoclopramide 10mg/2ml Inj IVP PRN ×2 (06:15→17:31)
[2017-01-01] MEDS: PCA shift volume MISC SCH ×2 (07:22→19:00)
[2017-01-01] MEDS: Heparin 5000 units/ml inj SUBQ SCH ×2 (08:37→21:00)
[2017-01-01] MEDS: Lyrica 75mg cap ORAL SCH ×3 (08:37→17:30)
[2017-01-01] MEDS ORDERED: HYDROmorphone 1mg/ml Carpuject SUBQ PRN (09:00)
[2017-01-01] MEDS ORDERED: HYDROmorphone 4mg tab ORAL PRN (09:00)
[2017-01-01] MEDS: Docusate 100mg cap ORAL SCH ×2 (09:00→21:34)
[2017-01-01 09:23] VITALS: BP 129/69
--- NOTE | 2017-01-01 09:31 | General Progress Note ---
Assessment/Plan Assessment/Plan (1) Intractable groin and thigh pain (2) Hidradenitis suppurativa (3) S/p Debridement of bilateral thighs Pt to be continued on Dilaudid TUBE TURNER which will be discontinued when syringe is completed and Oxycontin. We will start Dilaudid 4mg 1 TAB Q4H PRN severe pain and Dilaudid 2mg SubQ Q3H PRN severe breakthrough pain. An Rx for Oxycontin 30mg Q8H 21 tabs and Dilaudid 4mg Q4-6h PRN 45 tabs was written for patient in anticipation for discharge. He was advised to f/u with Dr. Oquendo after discharge to continue the Suboxone medication and f/u with surgeon and lab animal technologist. D/w Dr. Herring and he concurred. Subjective Date patient seen: Jan 01, 2017 Time patient seen: 07:30 - am Allergies: Coded Allergies: No Known Allergies (Unverified , 10/28/16) Subjective REVIEW OF SYSTEMS: Denies rash, fever, chills, sweating, dizziness, drowsiness, blurred vision, sore throat, or change in weight. No shortness of breath or chest pain. No nausea, vomiting, diarrhea, or blood in the stool or urine. No bowel or bladder incontinence. No dysuria. He is complaining of bilateral groin and thigh pain. SUBJECTIVE: Pt is in bed and reports that his pain has been controlled and tolerated well on the Dilaudid and Oxycontin. He has used 36mg of the TUBE TURNER in the last 24 hrs. Pt may be discharged later today as per surgeon barring no complications. Objective Last 24 Hour Vital Signs Date Time Temp Pulse Resp B/P (MAP) Pulse Ox O2 Delivery O2 Flow Rate FiO2 01/01/17 09:23 98.4 64 20 129/69 99 Room Air 01/01/17 08:00 17 01/01/17 04:28 20 01/01/17 04:00 97.6 71 18 137/83 96 Room Air 01/01/17 00:56 20 01/01/17 00:00 98.3 61 18 124/75 94 Room Air 12/31/16 20:35 20 12/31/16 20:14 98.0 59 18 122/79 96 Room Air 12/31/16 16:00 20 12/31/16 16:00 98.0 67 17 104/77 98 Room Air 12/31/16 12:00 97.2 18 137/76 96 Room Air 12/31/16 11:45 20 12/31/16 09:30 18 Height (Feet): 5 Height (Inches): 8.00 Weight (Pounds): 224 Objective GENERAL: Alert, awake, and oriented x3. HEENT: PERRLA. NECK: Range of motion is full in all directions. No tenderness to paracervical muscles. No adenopathy. LUNGS: Clear. HEART: Regular. ABDOMEN: Obese. EXTREMITIES: Bandages noted on b/l thighs with tenderness to palpation. NEURO: No changes. MAR DANIELLE Jan 01, 2017 09:31
[2017-01-01] MEDS: Relistor 12mg/0.6ml Vial SUBQ SCH (11:03)
[2017-01-01] MEDS ORDERED: D5 1/2NS 1000ml IV ONE (11:08)
--- NOTE | 2017-01-01 11:49 | General Progress Note ---
Progress Note Progress Note Pt seen and examined. POD# 2. Was planning on Dc today but has increasing pain in the left thigh. Dressings taken down and wounds appear ok. Will observe for one more day. Isabel Hurt M.D. ISABEL HURT Jan 01, 2017 11:49
[2017-01-01] MEDS: LORazepam 1mg tab ORAL PRN ×2 (11:55→23:45)
[2017-01-01 12:34] VITALS: BP 128/74
--- NOTE | 2017-01-01 12:44 | 48 Hour Post Anesthesia Eval ---
Post Anesthesia Evaluation Procedure: Excision of bilateral groin HS Date of Evaluation: Jan 01, 2017 Airway: patent Nausea: No Vomiting: No Pain Intensity: 2 Hydration Status: adequate Cardiopulmonary Status: at baseline Mental Status/LOC: patient returned to baseline Post-Anesthesia Complications: 0 Follow-up care needed: N/A - further care as per primary team INDIA WRIGHT M.D. Jan 01, 2017 12:44
--- NOTE | 2017-01-01 13:31 | General Progress Note ---
Assessment/Plan Problem List: (1) Abscess ICD Codes: L02.91 - Cutaneous abscess, unspecified SNOMED: 608050445 (2) Hidradenitis suppurativa ICD Codes: L73.2 - Hidradenitis suppurativa SNOMED: 05319686 (3) Chronic pain ICD Codes: G89.29 - Other chronic pain SNOMED: 37235517 (4) Opioid dependence ICD Codes: F11.20 - Opioid dependence, uncomplicated SNOMED: 35863999 (5) Tobacco abuse ICD Codes: Z72.0 - Tobacco use SNOMED: 77718955, 720457343 (6) H/O alcohol abuse ICD Codes: Z87.898 - Personal history of other specified conditions SNOMED: 016529910 Assessment/Plan s/p debridement of bilateral thigh tissue and flap closure on 12/30/16 Cont IV abx F/u blood cultures Wound care per surgery Appreciate plastic surg rec's Appreciate pain mgmt rec's Post operative recommendations include: - encourage mobilization/ambulation - encourage incentive spirometry to optimize pulmonary hygiene - DVT/GI prophylaxis as appropriate--SCDs, HSQ - pain control, supportive care, bowel regimen Counseled on tobacco cessation, >10min spent on discussion DC planning home w/ home health for wound care likely tomorrow per surgery FULL CODE D/w pt, RN, CM, surgery, pain mgmt regarding mgmt and dispo Subjective Date patient seen: Jan 01, 2017 Time patient seen: 13:31 ROS Limited/Unobtainable: No Allergies: Coded Allergies: No Known Allergies (Unverified , 10/28/16) Subjective No acute o/n events s/p debridement of bilateral thigh tissue and flap closure POD#1 Had episodes of nausea and vomiting overnight and this AM Pain controlled. States nanusea improving. Denies f/c, d/c, chest pain, SOB Objective Last 24 Hour Vital Signs Date Time Temp Pulse Resp B/P (MAP) Pulse Ox O2 Delivery O2 Flow Rate FiO2 01/01/17 12:34 98.6 62 20 128/74 99 Room Air 01/01/17 12:00 18 01/01/17 09:23 98.4 64 20 129/69 99 Room Air 01/01/17 08:00 17 01/01/17 04:28 20 01/01/17 04:00 97.6 71 18 137/83 96 Room Air 01/01/17 00:56 20 01/01/17 00:00 98.3 61 18 124/75 94 Room Air 12/31/16 20:35 20 12/31/16 20:14 98.0 59 18 122/79 96 Room Air 12/31/16 16:00 20 12/31/16 16:00 98.0 67 17 104/77 98 Room Air Intake and Output 01/01/17 01/02/17 19:00 07:00 Intake Total 240 ml Balance 240 ml Intake Oral 240 ml Height (Feet): 5 Height (Inches): 8.00 Weight (Pounds): 224 Objective General: alert, cooperative, no distress, appears stated age Head: normocephalic, without obvious abnormality, atraumatic Eyes: conjunctivae/corneas clear. PERRL, EOM's intact Throat: lips, mucosa, and tongue normal. MMM Neck: supple, symmetrical, trachea midline, and no JVD Lungs: clear to auscultation bilaterally Heart: regular rate and rhythm, S1, S2 normal, no murmur, click, rub or gallop Abdomen: soft, non-tender, non-distended, bowel sounds normal; no masses or organomegaly Extremities: extremities normal, atraumatic, no cyanosis or edema Pulses: 2+ and symmetric Skin: skin color, texture, turgor normal; dressing c/d/i Neurologic: grossly normal, no focal deficits Cinthia Grey M.D. Jan 01, 2017 13:31
--- NOTE | 2017-01-01 13:37 | General Progress Note ---
Assessment/Plan Problem List: (1) Abscess ICD Codes: L02.91 - Cutaneous abscess, unspecified SNOMED: 923710835 (2) Hidradenitis suppurativa ICD Codes: L73.2 - Hidradenitis suppurativa SNOMED: 53171625 (3) Chronic pain ICD Codes: G89.29 - Other chronic pain SNOMED: 81835920 (4) Opioid dependence ICD Codes: F11.20 - Opioid dependence, uncomplicated SNOMED: 60151587 (5) Tobacco abuse ICD Codes: Z72.0 - Tobacco use SNOMED: 56145317, 615334244 (6) H/O alcohol abuse ICD Codes: Z87.898 - Personal history of other specified conditions SNOMED: 776340530 Status: stable Assessment/Plan s/p debridement of bilateral thigh tissue and flap closure on 12/30/16 Cont IV abx F/u blood cultures Wound care per surgery Appreciate plastic surg rec's Appreciate pain mgmt rec's Post operative recommendations include: - encourage mobilization/ambulation - encourage incentive spirometry to optimize pulmonary hygiene - DVT/GI prophylaxis as appropriate--SCDs, HSQ - pain control, supportive care, bowel regimen DC planning home w/ home health for wound care likely tomorrow per surgery FULL CODE D/w pt, RN, CM, surgery, pain mgmt regarding mgmt and dispo Subjective Date patient seen: Jan 01, 2017 Time patient seen: 13:36 ROS Limited/Unobtainable: No Constitutional: Reports: no symptoms HEENT: Reports: no symptoms Cardiovascular: Reports: no symptoms Respiratory: Reports: no symptoms Gastrointestinal/Abdominal: Reports: no symptoms Genitourinary: Reports: no symptoms Neurologic/Psychiatric: Reports: no symptoms Endocrine: Reports: no symptoms Hematologic/Lymphatic: Reports: no symptoms Allergies: Coded Allergies: No Known Allergies (Unverified , 10/28/16) All Systems: reviewed and negative except above Subjective No acute o/n events s/p debridement of bilateral thigh tissue and flap closure POD#2 Having increased pain today so d/c held. States nanusea improving, no emesis. No BM in a few days. Denies f/c, d/c, chest pain, SOB Objective Last 24 Hour Vital Signs Date Time Temp Pulse Resp B/P (MAP) Pulse Ox O2 Delivery O2 Flow Rate FiO2 01/01/17 12:34 98.6 62 20 128/74 99 Room Air 01/01/17 12:00 18 01/01/17 09:23 98.4 64 20 129/69 99 Room Air 01/01/17 08:00 17 01/01/17 04:28 20 01/01/17 04:00 97.6 71 18 137/83 96 Room Air 01/01/17 00:56 20 01/01/17 00:00 98.3 61 18 124/75 94 Room Air 12/31/16 20:35 20 12/31/16 20:14 98.0 59 18 122/79 96 Room Air 12/31/16 16:00 20 12/31/16 16:00 98.0 67 17 104/77 98 Room Air Intake and Output 01/01/17 01/02/17 19:00 07:00 Intake Total 240 ml Balance 240 ml Intake Oral 240 ml Height (Feet): 5 Height (Inches): 8.00 Weight (Pounds): 224 Objective General: alert, cooperative, no distress, appears stated age Head: normocephalic, without obvious abnormality, atraumatic Eyes: conjunctivae/corneas clear. PERRL, EOM's intact Throat: lips, mucosa, and tongue normal. MMM Neck: supple, symmetrical, trachea midline, and no JVD Lungs: clear to auscultation bilaterally Heart: regular rate and rhythm, S1, S2 normal, no murmur, click, rub or gallop Abdomen: soft, non-tender, non-distended, bowel sounds normal; no masses or organomegaly Extremities: extremities normal, atraumatic, no cyanosis or edema Pulses: 2+ and symmetric Skin: skin color, texture, turgor normal; dressing c/d/i Neurologic: grossly normal, no focal deficits Cinthia Grey M.D. Jan 01, 2017 13:37
[2017-01-01 15:46] VITALS: BP 132/84
[2017-01-01] MEDS ORDERED: Miralax 17gm pkt ORAL PRN (16:00)
[2017-01-01] MEDS ORDERED: Rate Change PCA 1 Each MISC PRN (16:15)
[2017-01-01] MEDS ORDERED: HYDROmorphone 1mg/ml Carpuject SUBQ ONE (16:45)
[2017-01-01] MEDS ORDERED: PCA HYDROmorphone 1mg/ml 30 ML IV PRN (17:00)
[2017-01-01 20:48] VITALS: BP 118/64
[2017-01-02 00:20] VITALS: BP 127/80
[2017-01-02] MEDS: ceFAZolin 1gm in D5W 55ml IVPB SCH ×2 (02:32→09:22)
[2017-01-02] MEDS: oxyCONTIN 10mg tab ORAL SCH (06:41)
[2017-01-02] MEDS: PCA shift volume MISC SCH (07:16)
[2017-01-02] MEDS: Lyrica 75mg cap ORAL SCH (09:23)
[2017-01-02] MEDS: Docusate 100mg cap ORAL SCH (09:23)
[2017-01-02] MEDS: Heparin 5000 units/ml inj SUBQ SCH (09:26)
[2017-01-02] MEDS ORDERED: Tubing IV Secondary IV ONE (09:41)
[2017-01-02] MEDS ORDERED: NS 275ml ONE (11:58)
--- NOTE | 2017-01-02 19:01 | Discharge Summary ---
Discharge Summary Hospital Course Date of Admission Dec 29, 2016 at 12:45 Date of Discharge Jan 02, 2017 at 11:59 Admitting Diagnosis Hidradenitis Suppurativa Reason for Hospitalization: Abscess HPI 21y/o male with pmh of hidradenitis suppurativa, tobacco abuse, alcohol abuse, drug abuse, chronic pain and addiction who presents with increased pain/swelling /redness from b/l groin lesions. Pt states that he has had this for the past 5 years and has been treated with multiple courses of antibiotics without any improvement. This is localized to the groin described as a 5/10 dull ache to this region and is worse with touch. Pain does not radiate. Notes swelling and redness b/l. He denies fevers, chills, discharge from the wounds, shortness of breath, chest pain, abdominal pain, dysuria. Pt states able to ambulate several blocks and at least a flight of stairs w/o chest pain or SOB. H/o alcohol abuse , now in remission. H/o chronic pain and opioid dependence, now on suboxone. Smokes marijuana daily. Also smokes 1ppd cig x 5 years. Consultations Plastic surgery, Pain management Procedures Debridement of bilateral thigh tissue and flap closure on 12/30/16 Hospital Course Pt was admitted and seen by plastic surgery. He was started on IV antibiotics. He underwent debridement of bilateral thigh tissue and flap closure on . Pt required several days for wound care, IV antibiotics and pain control. Pain mgmt assistance w/ pain control given pt's h/o chronic pain and addiction w / opioid dependence and tolerance. Prior to discharge, pt was hemodynamically stable, tolerating PO and ambulating w/o assistance. Discharge Medications New Medications: Cephalexin* (Keflex*) 500 Mg Capsule 500 MG ORAL Q6H for 7 Days, #28 CAP 0 Refills Continued Medications: Buprenorphine Hcl/Naloxone Hcl (Suboxone 4 Mg-1 Mg Sl Film) 1 Each Film 1 EACH SL, FILM Gabapentin* (Gabapentin*) 400 Mg Capsule 1600 MG ORAL QID, CAP 0 Refills Lorazepam* (Ativan*) 1 Mg Tablet 1 MG ORAL BID, TAB Valacyclovir Hcl* (Valtrex*) 500 Mg Tablet 500 MG ORAL THREE TIMES A DAY, #90 TAB 0 Refills Discharge Condition Upon Discharge: stable Discharge Disposition Patient was discharged to home w/ home health Discharge Diagnoses: (1) Hidradenitis suppurativa (2) Abscess (3) Opioid dependence (4) Tobacco abuse (5) H/O alcohol abuse (6) Chronic pain Cinthia Grey M.D. Jan 02, 2017 19:01
== END 2017-01-02 11:59 | disposition home health service (06) | DRG 571 ==
LOC: EMR 12:44 → 3E 12:45 → EDBEDREQ 13:00
DX: L02.416 Cutaneous abscess of left lower limb (principal); F11.20 Opioid dependence, uncomplicated; L02.214 Cutaneous abscess of groin; L02.415 Cutaneous abscess of right lower limb; E66.01 Morbid (severe) obesity due to excess calories; L73.2 Hidradenitis suppurativa; F17.200 Nicotine dependence, unspecified, uncomplicated; F10.21 Alcohol dependence, in remission; G89.29 Other chronic pain
CPT/HCPCS: 36415; 71020; 80053; 81003; 83690; 85025; 85610; 85730; 87040; 93005; 94003; 94150; 99285; J2250; J2405; J2710; J2765

== ENCOUNTER 2017-01-11 19:35 | Emergency (ER) | payer BC ==
[~2017-01-11] VITALS: Ht 177.8 cm; Wt 104.3 kg
[~2017-01-11 19:35] MED LIST: ATIVAN1 MG ORAL; GABAPENTIN400 MG ORAL; KEFLEX500 MG ORAL; SUBOXONE 4 MG-1 EACH SL; VALTREX500 MG ORAL
[2017-01-11] MEDS ORDERED: LORazepam Inj 2mg/ml 1ml IV ONE (20:00)
[2017-01-11] MEDS ORDERED: Vancomycin 1.5gm/D5W 250ml 250 ML IVPB ONE (20:15)
--- NOTE | 2017-01-11 20:21 | Emergency Room Report ---
History of Present Illness General Chief Complaint: Wound Recheck/Suture Removal Source: Patient Present Illness HPI 21-year-old male, history of hydradenitis supperativa, surgical resection bilateral inner thighs performed 1.5 weeks ago, presenting with wound pain, and wound dehiscence. Patient states that he has had a lot of pain ever since the surgery. Saw that the left wound was open, came to the emergency room. Complaining of chills no fever. Also had some nausea and vomiting today. 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 Review of Systems All Other Systems: negative except mentioned in HPI Physical Exam Vital Signs Date Time Temp Pulse Resp B/P (MAP) Pulse Ox O2 Delivery O2 Flow Rate FiO2 01/11/17 19:42 98.1 97 18 123/83 97 Room Air Sp02 EP Interpretation: reviewed, normal General Appearance: alert, GCS 15, non-toxic, moderate distress Head: normocephalic, atraumatic Eyes: bilateral eye normal inspection, bilateral eye PERRL, bilateral eye EOMI ENT: normal ENT inspection, normal pharynx, normal voice, moist mucus membranes Neck: normal inspection, full range of motion, supple Respiratory: normal inspection, lungs clear, normal breath sounds, no respiratory distress, no retraction, no wheezing, speaking full sentences, chest symmetrical Cardiovascular #1: normal inspection, regular rate, rhythm, no edema, normal capillary refill Cardiovascular #2: 2+ radial (R), 2+ radial (L) Gastrointestinal: normal inspection, non tender, soft, non-distended, no guarding Genitourinary: no CVA tenderness Musculoskeletal: normal inspection, back normal, normal range of motion, non- tender Neurologic: normal inspection, alert, oriented x3, responsive, motor strength/ tone normal, sensory intact, normal gait, speech normal Psychiatric: normal inspection, judgement/insight normal, memory normal Skin: other - Bilateral inner thighs, with 6 cm linear incision wounds bilaterally, left with proximal wound dehiscence, multiple sutures in place, tender to palpation Medical Decision Making Diagnostic Impression: Primary Impression: Hidradenitis suppurativa ER Course 21-year-old male, recent surgery for hidradenitis suppurative p/w pain/wound dehiscence DDX: wound dehiscence, does not appear acutely infected Plan: Obtain labs pain control, ivf ER course: Patient has remained stable during ED stay. Received medications with some relief agustin Elliott'ed patient in ED stable for DC home with fu in his office Disposition: DCed home with keflex and valium Please note that this Emergency Department Report was dictated using [employer] truck driver technology software, occasionally this can lead to erroneous entry secondary to interpretation by the dictation equipment Laboratory Tests Test 01/11/17 20:10 White Blood Count 11.2 K/UL (4.8-10.8) H Red Blood Count 4.95 M/UL (4.70-6.10) Hemoglobin 15.0 G/DL (14.2-18.0) Hematocrit 46.5 % (42.0-52.0) Mean Corpuscular Volume 94 FL (80-99) Mean Corpuscular Hemoglobin 30.3 PG (27.0-31.0) Mean Corpuscular Hemoglobin Concent 32.3 G/DL (32.0-36.0) Red Cell Distribution Width 10.9 % (11.6-14.8) L Platelet Count 402 K/UL (150-450) Mean Platelet Volume 6.7 FL (6.5-10.1) Neutrophils (%) (Auto) 64.4 % (45.0-75.0) Lymphocytes (%) (Auto) 26.1 % (20.0-45.0) Monocytes (%) (Auto) 8.1 % (1.0-10.0) Eosinophils (%) (Auto) 0.5 % (0.0-3.0) Basophils (%) (Auto) 1.0 % (0.0-2.0) Sodium Level 139 MMOL/L (136-145) Potassium Level 4.4 MMOL/L (3.5-5.1) Chloride Level 102 MMOL/L (98-107) Carbon Dioxide Level 31 MMOL/L (21-32) Anion Gap 6 mmol/L (5-15) Blood Urea Nitrogen 12 mg/dL (7-18) Creatinine 0.9 MG/DL (0.55-1.30) Estimate Glomerular Filtration Rate > 60 mL/min (>60) Glucose Level 102 MG/DL (74-106) Lactic Acid Level 1.50 mmol/L (0.66-2.22) Calcium Level 9.6 MG/DL (8.5-10.1) Total Bilirubin 0.3 MG/DL (0.2-1.0) Aspartate Amino Transferase (AST) 22 U/L (15-37) Alanine Aminotransferase (ALT) 26 U/L (12-78) Alkaline Phosphatase 49 U/L (46-116) Total Protein 8.0 G/DL (6.4-8.2) Albumin 4.0 G/DL (3.4-5.0) Globulin 4.0 g/dL Albumin/Globulin Ratio 1.0 (1.0-2.7) Lipase 59 U/L (73-393) L Last Vital Signs Date Time Temp Pulse Resp B/P (MAP) Pulse Ox O2 Delivery O2 Flow Rate FiO2 01/11/17 19:42 98.1 97 18 123/83 97 Room Air Disposition: HOME, SELF-CARE Condition: Improved Scripts Cephalexin* (KEFLEX*) 500 Mg Capsule 500 MG ORAL Q6H for 7 Days, #28 CAP 0 Refills Prov: Rhonda Flynn M.D. 01/11/17 Diazepam* (VALIUM*) 5 Mg Tablet 5 MG ORAL TID Y for ANXIETY for 3 Days, #10 TAB 0 Refills Prov: Rhonda Flynn M.D. 01/11/17 Patient Instructions: Wound Check Rhonda Flynn M.D. Jan 11, 2017 20:21
[2017-01-11 20:32] LABS: EOSINOPHILS % (AUTO) 0.5 % (0.0-3.0); LYMPHOCYTES % (AUTO) 26.1 % (20.0-45.0); MEAN CORPUSCULAR HEMOGLOBIN 30.3 PG (27.0-31.0); MEAN CORPUSCULAR HGB CONC 32.3 G/DL (32.0-36.0); MEAN CORPUSCULAR VOLUME 94 FL (80-99); MEAN PLATELET VOLUME 6.7 FL (6.5-10.1); MONOCYTES % (AUTO) 8.1 % (1.0-10.0); NEUTROPHILS % (AUTO) 64.4 % (45.0-75.0); PLATELET COUNT 402 K/UL (150-450); RED BLOOD COUNT 4.95 M/UL (4.70-6.10); RED CELL DISTRIBUTION WIDTH 10.9 % (11.6-14.8); WHITE BLOOD COUNT 11.2 K/UL (4.8-10.8)
[2017-01-11 20:39] LABS: ANION GAP 6 mmol/L (5-15); CALCIUM 9.6 MG/DL (8.5-10.1); CARBON DIOXIDE 31 MMOL/L (21-32); CHLORIDE 102 MMOL/L (98-107); CREATININE 0.9 MG/DL (0.55-1.30); GLOMERULAR FILTRATION RATE > 60 mL/min (>60); POTASSIUM 4.4 MMOL/L (3.5-5.1); SODIUM 139 MMOL/L (136-145)
[2017-01-11 20:43] LABS: ALANINE AMINOTRANSFERASE 26 U/L (12-78); ASPARTATE AMINO TRANSFERASE 22 U/L (15-37); LIPASE 59 U/L (73-393)
[2017-01-11] MEDS ORDERED: KEFLEX500 MG ORAL (21:08)
[2017-01-11] MEDS ORDERED: VALIUM5 MG ORAL (21:08)
[2017-01-11] MEDS ORDERED: HYDROmorphone 1mg/ml Carpuject IVP ONE (21:15)
[2017-01-11] MEDS ORDERED: Morphine Sulfate 4mg/ml Inj IVP ONE (21:15)
[2017-01-11 22:25] VITALS: BP 128/67
[2017-01-11 22:30] VITALS: BP 128/67
--- NOTE | 2017-01-12 04:15 | Consultation ---
DATE OF CONSULTATION: 01/11/2017 CONSULTING PHYSICIAN: Jef Baez M.D. REASON FOR THE CONSULTATION: A postoperative wound dehiscence. HISTORY OF PRESENT ILLNESS: This is a 21-year-old male, who is approximately about 10 days postoperative from radical excision of bilateral groin tissue with flap reconstruction. He was seen in my office last Wednesday when he was noted to be doing well. This morning, he presented with some wound concerns to his home health nurse, who then instructed the patient to come to the emergency room. PHYSICAL EXAMINATION: Upon my examination, the right groin is healing well. On the left thigh wound, 80% of the wound is closed, however, the superior 20% of the dehiscence with some fibrinous exudate. I performed a bedside cleansing of the wound with iodine and saline and the wound was noted to be shallow with no evidence of cellulitis or pus present. Once the exudate was cleaned out, wet-to-dry dressing was applied. ASSESSMENT AND PLAN: This is a 21-year-old male, who is approximately 10 days postoperative with a partial superior right thigh wound dehisced. There is no acute infection at this time. The patient will need wet-to-dry dressing. He will follow up with me next week. He will be placed on some prophylactic antibiotics given the fact that the wound is open partially, however, there is no evidence of active cellulitis present. The plan was communicated clearly with the family and the patient who understand and will follow up with me next week. Jef Baez M.D. DR: ISA JOB#: [id number] CC:
== END 2017-01-11 22:30 | disposition home or self-care (01) ==
LOC: EMR 19:58
DX: T81.31XA Disruption of external operation (surgical) wound, not elsewhere classified, initial encounter (principal); Y83.8 Other surgical procedures as the cause of abnormal reaction of the patient, or of later complication, without mention of misadventure at the time of the procedure; Y92.89 Other specified places as the place of occurrence of the external cause; L73.2 Hidradenitis suppurativa
CPT/HCPCS: 36415; 80053; 83605; 83690; 85025; 87040; 99284; J2405; J3370

== ENCOUNTER 2017-02-24 19:43 | Emergency (ER) | payer BC ==
[~2017-02-24] VITALS: Ht 180.3 cm; Wt 104.3 kg
[~2017-02-24 19:43] MED LIST changes: +VALIUM5 MG ORAL
[2017-02-24 19:52] VITALS: BP 129/76
[2017-02-24] MEDS ORDERED: GABAPENTIN400 MG ORAL (19:55)
[2017-02-24] MEDS ORDERED: LIBRIUM10 MG ORAL (19:55)
[2017-02-24] MEDS ORDERED: chlordiazePOXIDE 25mg Cap ORAL ONE (21:15)
--- NOTE | 2017-02-24 21:26 | Emergency Room Report ---
History of Present Illness General Chief Complaint: Behavioral Complaint Source: Patient, Family Member, Medical Record, EMS Present Illness HPI Is a 21-year-old male with a history of PTSD, anxiety, and opioid dependence on Suboxone. Patient was placed on a 5150 by police. He was getting agitated and screaming. He complaining of agitated thoughts. Neighbor called 911. He was placed on a 5150. Patient is calm now but denies suicidal thoughts or homicidal thought. Said he felt anxious. 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 Review of Systems ENT: Denies: sore throat Cardiovascular: Denies: chest pain, palpitations Gastrointestinal/Abdominal: Denies: nausea, vomiting, diarrhea Musculoskeletal: Denies: back problems Skin: Denies: rash Neurological: Denies: TORRES, seizures All Other Systems: negative except mentioned in HPI Physical Exam Vital Signs Date Time Temp Pulse Resp B/P (MAP) Pulse Ox O2 Delivery O2 Flow Rate FiO2 02/24/17 19:49 101.7 115 16 129/76 100 Room Air vitals with fever. repeat temperature is normal. No intervention was done. Sp02 EP Interpretation: reviewed, normal General Appearance: alert/responsive, no apparent distress, non-toxic Head: normocephalic, atraumatic Eyes: PERRL, EOMI ENT: oropharynx normal Neck: supple/symm/no masses Respiratory: effort normal, no rhonchi, no wheezing Cardiovascular: no murmur, gallop, rub Gastrointestinal: non-tender, no mass, non-distended, no rebound/guarding, normal bowel sounds Musculoskeletal: gait & station normal Neurologic: oriented x3, sensory intact, motor strength/tone normal Skin: no rash, normal palpation Medical Decision Making Diagnostic Impression: Primary Impression: Psychosis Qualified Codes: F23 - Brief psychotic disorder Additional Impressions: Opioid dependence Qualified Codes: F11.20 - Opioid dependence, uncomplicated Chronic pain Qualified Codes: G89.4 - Chronic pain syndrome ER Course Patient presents with psychosis and paranoia. Probably secondary to accommodation of opiate and benzo use/abuse. He keep asking for pain medication here. The second toe his mom that he can have his Suboxone. She brought him on some meds but took them back with her. I gave him Clarence here. He wanted something for sleep but he sleeping comfortably without any intervention. He is a 5150. We'll get psychiatric evaluation. Either with our psychiatrist here medical clearance for sent him to a psychiatric facility. He is medically clear from my standpoint. Last Vital Signs Date Time Temp Pulse Resp B/P (MAP) Pulse Ox O2 Delivery O2 Flow Rate FiO2 02/24/17 19:52 101.7 115 16 129/76 100 Room Air Status: improved Disposition: D/C TO LAW ENFORCEMENT IN [facility] Condition: Stable NIYAH REESE M.D. Feb 24, 2017 21:25
[2017-02-24 21:40] LABS: EOSINOPHILS % (AUTO) 0.1 % (0.0-3.0); HEMATOCRIT 46.2 % (42.0-52.0); HEMOGLOBIN 14.5 G/DL (14.2-18.0); LYMPHOCYTES % (AUTO) 8.4 % (20.0-45.0); MEAN CORPUSCULAR VOLUME 92 FL (80-99); MONOCYTES % (AUTO) 6.4 % (1.0-10.0); NEUTROPHILS % (AUTO) 84.1 % (45.0-75.0); PLATELET COUNT 357 K/UL (150-450); RED BLOOD COUNT 5.02 M/UL (4.70-6.10); RED CELL DISTRIBUTION WIDTH 10.5 % (11.6-14.8); WHITE BLOOD COUNT 17.8 K/UL (4.8-10.8)
[2017-02-24 21:45] LABS: APPEARANCE,URINE CLEAR; BILIRUBIN, URINE 1+ (NEGATIVE); COLOR,URINE AMBER; GLUCOSE, URINE (UA) NEGATIVE (NEGATIVE); KETONES,URINE 4+ (NEGATIVE); LEUKOCYTE ESTERASE ,URINE 1+ (NEGATIVE); NITRITE,URINE NEGATIVE (NEGATIVE); PH,URINE 5 (4.5-8.0); PROTEIN,URINE 2+ (NEGATIVE); UROBILINOGEN,URINE NORMAL MG/DL (0.0-1.0)
[2017-02-24 21:54] LABS: ANION GAP 17 mmol/L (5-15); BLOOD UREA NITROGEN 17 mg/dL (7-18); CALCIUM 9.4 MG/DL (8.5-10.1); CARBON DIOXIDE 22 MMOL/L (21-32); CHLORIDE 97 MMOL/L (98-107); POTASSIUM 4.2 MMOL/L (3.5-5.1); SODIUM 136 MMOL/L (136-145)
[2017-02-24 22:02] LABS: ALANINE AMINOTRANSFERASE 45 U/L (12-78); ALBUMIN 4.7 G/DL (3.4-5.0); ALBUMIN/GLOBULIN RATIO 1.1 (1.0-2.7); ALKALINE PHOSPHATASE 55 U/L (46-116); ASPARTATE AMINO TRANSFERASE 54 U/L (15-37); BILIRUBIN,TOTAL 1.1 MG/DL (0.2-1.0)
[2017-02-24 22:07] LABS: BILIRUBIN,DIRECT 0.2 MG/DL (0.0-0.3)
[2017-02-25] MEDS ORDERED: chlordiazePOXIDE 25mg Cap ONE (00:39)
[2017-02-25 01:28] VITALS: BP 127/82
[2017-02-25] MEDS ORDERED: Norco 5mg/325mg tab ORAL ONE (01:45)
[2017-02-25] MEDS ORDERED: Norco 5mg/325mg tab ONE (01:48)
[2017-02-25 05:39] VITALS: BP 122/83
[2017-02-25 05:47] LABS: BASOPHILS % (AUTO) 1.1 % (0.0-2.0); EOSINOPHILS % (AUTO) 0.6 % (0.0-3.0); HEMATOCRIT 43.2 % (42.0-52.0); HEMOGLOBIN 14.7 G/DL (14.2-18.0); LYMPHOCYTES % (AUTO) 26.8 % (20.0-45.0); MEAN CORPUSCULAR VOLUME 92 FL (80-99); MONOCYTES % (AUTO) 10.2 % (1.0-10.0); NEUTROPHILS % (AUTO) 61.2 % (45.0-75.0); PLATELET COUNT 355 K/UL (150-450); RED BLOOD COUNT 4.69 M/UL (4.70-6.10); RED CELL DISTRIBUTION WIDTH 10.4 % (11.6-14.8); WHITE BLOOD COUNT 12.8 K/UL (4.8-10.8)
[2017-02-25] MEDS ORDERED: RISPERDAL2 MG ORAL (10:21)
--- NOTE | 2017-02-25 11:13 | Diagnostic Imaging Report ---
Indication: Cough Technique: One view of the chest Comparison: 12/29/2016 Findings: The lungs pleural spaces are clear. There is equivocal minimal upper thoracic scoliotic deformity. Normal heart size. No significant change Impression: No acute process
[2017-02-25 11:29] VITALS: BP 120/78
--- NOTE | 2017-02-25 12:22 | Consultation ---
History of Present Illness General Date patient seen: Feb 25, 2017 Chief Complaint: Behavioral Complaint Present Illness HPI 21-year-old male with a history of PTSD, anxiety, and, meth and benzo, opioid dependence on Suboxone. Patient was placed on a 5150 by police for DTO, apparently he was getting agitated and screaming his neighbor called 911. He was placed on a 5150. Patient is calm now but denies suicidal thoughts or homicidal thought. the pt is still delusional, he stated that "I pop Adderall..I can not say where do I get it from." the pt is agreeing to take a dose of risperdal and has been cooperative in ER. called her mother several times however her voice-mail was full, therefore I was unable to leave mail. the pt is not at imminent dts/dto. Allergies: Coded Allergies: No Known Allergies (Unverified , 10/28/16) Medication History Scheduled Cephalexin* (Keflex*), 500 MG ORAL Q6H Cephalexin* (Keflex*), 500 MG ORAL Q6H Chlordiazepoxide Hcl* (Librium*), 25 MG ORAL BID, (Reported) Gabapentin* (Gabapentin*), 1,600 MG ORAL QID, (Reported) Gabapentin* (Gabapentin*), 400 MG ORAL THREE TIMES A DAY, (Reported) Lorazepam* (Ativan*), 1 MG ORAL BID, (Reported) Risperidone* (Risperdal*), 2 MG ORAL QHS Valacyclovir Hcl* (Valtrex*), 500 MG ORAL THREE TIMES A DAY, (Reported) Scheduled PRN Diazepam* (Valium*), 5 MG ORAL TID PRN for ANXIETY Miscellaneous Medications Buprenorphine Hcl/Naloxone Hcl (Suboxone 4 Mg-1 Mg Sl Film), 1 EACH SL, ( Reported) Patient History History Provided By: Patient, Medical Record Healthcare decision maker Resuscitation status Advanced Directive on File Past Medical/Surgical History Past Medical/Surgical History: (1) Hidradenitis suppurativa (2) Drug overdose (3) Opioid dependence (4) Tobacco abuse (5) Chronic pain (6) H/O alcohol abuse (7) Abscess (8) Nausea and vomiting Review of Systems Psychiatric: Reports: prior hx, anxiety, depressed feelings, emotional problems , other - Delusion Physical Exam General Appearance: no apparent distress, alert Neurologic: alert, oriented x 3, responsive, depressed affect Last 24 Hour Vital Signs Date Time Temp Pulse Resp B/P (MAP) Pulse Ox O2 Delivery O2 Flow Rate FiO2 02/25/17 11:29 98.1 78 18 120/78 100 Room Air 02/25/17 10:27 98.1 02/25/17 05:39 98.1 89 16 122/83 99 Room Air 02/25/17 01:28 98.5 103 16 127/82 100 Room Air 02/24/17 19:52 101.7 115 16 129/76 100 Room Air 02/24/17 19:49 101.7 115 16 129/76 100 Room Air Laboratory Tests Test 02/24/17 21:05 02/24/17 21:18 02/25/17 05:40 Urine Color Marilyn Urine Appearance Clear Urine pH 5 (4.5-8.0) Urine Specific [place] 1.025 (1.005-1.035) Urine Protein 2+ (NEGATIVE) H Urine Glucose (UA) Negative (NEGATIVE) Urine Ketones 4+ (NEGATIVE) H Urine Occult Blood Negative (NEGATIVE) Urine Nitrite Negative (NEGATIVE) Urine Bilirubin 1+ (NEGATIVE) H Urine Ictotest Negative Urine Urobilinogen Normal MG/DL (0.0-1.0) Urine Leukocyte Esterase 1+ (NEGATIVE) H Urine RBC 0-2 /HPF (0 - 0) H Urine WBC 5-10 /HPF (0 - 0) H Urine Squamous Epithelial Cells None /LPF (NONE/OCC) Urine Bacteria Few /HPF (NONE) Urine Mucus Many /LPF (NONE/OCC) H Urine Opiates Screen Negative (NEGATIVE) Urine Barbiturates Screen Negative (NEGATIVE) Phencyclidine (PCP) Screen Negative (NEGATIVE) Urine Amphetamines Screen Positive (NEGATIVE) H Urine Benzodiazepines Screen Positive (NEGATIVE) H Urine Cocaine Screen Negative (NEGATIVE) Urine Marijuana (THC) Screen Positive (NEGATIVE) H White Blood Count 17.8 K/UL (4.8-10.8) H 12.8 K/UL (4.8-10.8) H Red Blood Count 5.02 M/UL (4.70-6.10) 4.69 M/UL (4.70-6.10) L Hemoglobin 14.5 G/DL (14.2-18.0) 14.7 G/DL (14.2-18.0) Hematocrit 46.2 % (42.0-52.0) 43.2 % (42.0-52.0) Mean Corpuscular Volume 92 FL (80-99) 92 FL (80-99) Mean Corpuscular Hemoglobin 29.0 PG (27.0-31.0) 31.3 PG (27.0-31.0) H Mean Corpuscular Hemoglobin Concent 31.5 G/DL (32.0-36.0) L 34.0 G/DL (32.0-36.0) Red Cell Distribution Width 10.5 % (11.6-14.8) L 10.4 % (11.6-14.8) L Platelet Count 357 K/UL (150-450) 355 K/UL (150-450) Mean Platelet Volume 6.6 FL (6.5-10.1) 7.6 FL (6.5-10.1) Neutrophils (%) (Auto) 84.1 % (45.0-75.0) H 61.2 % (45.0-75.0) Lymphocytes (%) (Auto) 8.4 % (20.0-45.0) L 26.8 % (20.0-45.0) Monocytes (%) (Auto) 6.4 % (1.0-10.0) 10.2 % (1.0-10.0) H Eosinophils (%) (Auto) 0.1 % (0.0-3.0) 0.6 % (0.0-3.0) Basophils (%) (Auto) 1.0 % (0.0-2.0) 1.1 % (0.0-2.0) Sodium Level 136 MMOL/L (136-145) Potassium Level 4.2 MMOL/L (3.5-5.1) Chloride Level 97 MMOL/L (98-107) L Carbon Dioxide Level 22 MMOL/L (21-32) Anion Gap 17 mmol/L (5-15) H Blood Urea Nitrogen 17 mg/dL (7-18) Creatinine 1.0 MG/DL (0.55-1.30) Estimat Glomerular Filtration Rate > 60 mL/min (>60) Glucose Level 74 MG/DL (74-106) Calcium Level 9.4 MG/DL (8.5-10.1) Total Bilirubin 1.1 MG/DL (0.2-1.0) H Direct Bilirubin 0.2 MG/DL (0.0-0.3) Aspartate Amino Transf (AST/SGOT) 54 U/L (15-37) H Alanine Aminotransferase (ALT/SGPT) 45 U/L (12-78) Alkaline Phosphatase 55 U/L (46-116) Total Protein 9.0 G/DL (6.4-8.2) H Albumin 4.7 G/DL (3.4-5.0) Globulin 4.3 g/dL Albumin/Globulin Ratio 1.1 (1.0-2.7) Salicylates Level 3.4 ug/mL (2.8-20) Acetaminophen Level < 2 MCG/ML (10-30) L Serum Alcohol < 3 mg/dL Height (Feet): 5 Height (Inches): 11.00 Weight (Pounds): 230 Assessment/Plan Status: stable, progressing Assessment/Plan Substance induced psychosis Agitation -Risperdal 2mg qhs -the pt was given script Miriam Arriaga M.D. Feb 25, 2017 12:22
== END 2017-02-25 11:32 | disposition home or self-care (01) ==
LOC: EDBD 19:43 → EMR 20:00
DX: F29 Unspecified psychosis not due to a substance or known physiological condition (principal); F11.20 Opioid dependence, uncomplicated; G89.29 Other chronic pain; F41.9 Anxiety disorder, unspecified; F43.10 Post-traumatic stress disorder, unspecified; R05 Cough
CPT/HCPCS: 36415; 71045; 80053; 80307; 81003; 82248; 85025; 99284; G0480; 80329